=== PATIENT | female | born 1975 | race Caucasian/White ===

== ENCOUNTER 2017-03-02 10:46 | Inpatient (IN) | payer SELFPAY ==
[~2017-03-02] VITALS: Ht 165.1 cm; Wt 90.3 kg
[~2017-03-02 10:46] MED LIST: HYDR-3580 PO; LEVA750T9 PO; SUMA25 PO
[2017-03-02 10:50] VITALS: BP 117/66; PULSE 78; RESP 15; TEMP 97.7; O2SAT 95
--- NOTE | 2017-03-02 11:12 | PD ---
Physical Exam Time Seen by Provider: 11:11 Narrative 41 y/o female reports that she "overdosed" on heroin yesterday- she was cyanotic per onlookers. Today she is having paresthesias in the extremities, generalized weakness, generalized myalgias. Vital signs reviewed. Seen at triage desk. Awaiting bed placement. Data Data Last Documented VS Vital Signs Date Time Temp Pulse Resp B/P Pulse Ox O2 Delivery O2 Flow Rate FiO2 03/02/17 10:50 97.7 78 15 117/66 95 MDM Medical Record Reviewed: Yes Supervised Visit with MAXINE: Timbo Covington Mar 02, 2017 11:12
[2017-03-02 11:55] LABS: AUTOMATED NEUTROPHIL # 8.5 TH/MM3 (1.8-7.7); BASOPHIL % 0.4 % (0.0-2.0); EOSINOPHIL # 0.1 TH/MM3 (0-0.4); EOSINOPHIL % 0.7 % (0.0-4.0); HEMATOCRIT 38.4 % (35.0-46.0); HEMO FLAGS DIFF FINAL; LYMPH % 18.3 % (9.0-44.0); LYMPHOCYTE # 2.1 TH/MM3 (1.0-4.8); MEAN CELL VOLUME 86.5 FL (80.0-100.0); MEAN CORPUSCULAR HEMOGLOBIN 29.2 PG (27.0-34.0); MEAN CORPUSCULAR HGB CONC 33.8 % (32.0-36.0); MONO % 4.6 % (0.0-8.0); PLATELET COUNT 133 TH/MM3 (150-450); RED BLOOD COUNT 4.44 MIL/MM3 (4.00-5.30); RED CELL DISTRIBUTION WIDTH 15.6 % (11.6-17.2); WHITE BLOOD COUNT 11.2 TH/MM3 (4.0-11.0)
[2017-03-02 12:14] LABS: ALT (GPT) 701 U/L (10-53); ANION GAP 10 MEQ/L (5-15); AST (GOT) 722 U/L (15-37); BICARBONATE 23.5 MEQ/L (21.0-32.0); BLOOD UREA NITROGEN 30 MG/DL (7-18); CHLORIDE 103 MEQ/L (98-107); GLOMERULAR FILTRATION RATE 21 ML/MIN (>89); MAGNESIUM 2.4 MG/DL (1.5-2.5); POTASSIUM 3.5 MEQ/L (3.5-5.1); SODIUM (NA) 136 MEQ/L (136-145)
[2017-03-02 12:43] LABS: ALKALINE PHOSPHATASE 115 U/L (45-117); TOTAL BILIRUBIN ADULT 0.5 MG/DL (0.2-1.0)
[2017-03-02 13:16] LABS: CREATINE KINASE 16587 U/L (26-192)
[2017-03-02] MEDS ORDERED: SODIUM CHLOR 0.9% 1000 ML INJ 1,000 ML IV SCH ×3 (13:31→16:00)
[2017-03-02] MEDS ORDERED: SODIUM CHLOR 0.9% 1000 ML INJ 1,000 ML IV ONE ×2 (14:15)
--- NOTE | 2017-03-02 14:15 | PD ---
HPI Chief Complaint: Pain: Acute or Chronic Time Seen by Provider: 14:11 Travel History International Travel<30 days: No Contact w/Intl Traveler<30days: No Traveled to known affect area: No History of Present Illness HPI Patient comes emergency Department complaining of muscle cramping in all 4 extremities, lower extremities greater than upper extremities. Patient reports began after accidentally overdosing on heroin yesterday around 5 AM. Patient states that she did not go to the ER but that her friend stayed with her after injecting heroin she passed out, but continued breathing. Patient reports that a friend stayed with her and help working with her but did not call 911. Patient states when she awoke she began having the cramping pain that is worse with walking. Patient tried resting yesterday with no improvement of her symptoms and decided to come to the emergency Department for further treatment and evaluation. Patient denies any chest pain, shortness of breath, nausea, vomiting, abdominal pain, or headaches. Patient states only her second time doing heroin, but she has done crack intermittently over the last 20 years. PFSH Past Medical History Hx Anticoagulant Therapy: No Arthritis: No Asthma: Yes Autoimmune Disease: No Blood Disorders: No Anxiety: Yes Depression: Yes Heart Rhythm Problems: No Cancer: Yes (POSS CERVICAL POSS HPV, DX'D 4 YRS AGO, breast cancer) Cardiovascular Problems: No High Cholesterol: No Chemotherapy: Yes Chest Pain: No Congestive Heart Failure: No COPD: No Cerebrovascular Accident: No Diabetes: No Diminished Hearing: No GERD: No Glaucoma: No Headaches: No Hepatitis: No Hiatal Hernia: No Hypertension: No Kidney Stones: No Psychiatric: Yes (ALCOHOLIC & PSA DEPENDENCY) Respiratory: No Myocardial Infarction: No Radiation Therapy: No Renal Failure: No Seizures: No Sickle Cell Disease: No Sleep Apnea: No Thyroid Disease: No Ulcer: No ?: Not : 7 Para: 7 Miscarriage: 0 : 0 Ectopic : No Ovarian Cysts: No Tubal Ligation: No Past Surgical History Abdominal Surgery: Yes AICD: No Appendectomy: Yes Cardiac Surgery: No Section: Yes (x 2) Ear Surgery: No Endocrine Surgery: No Eye Surgery: No Genitourinary Surgery: No Gynecologic Surgery: Yes (C-SECT X 1) Hysterectomy: No Neurologic Surgery: No Oral Surgery: No Pacemaker: No Thoracic Surgery: Yes (double mastectomy) Other Surgery: Yes (HERNIA/ port) Social History Alcohol Use: No Tobacco Use: Yes (1 PPD FOR 15 YEARS now 10 per day) 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 (HX OF CRACK) Allergies-Medications (Allergen,Severity, Reaction): Coded Allergies: Morphine (Verified Allergy, Severe, Headache, 03/02/17) Erythromycins (Verified Allergy, Intermediate, RASH,N/V, 03/02/17) Reported Meds & Prescriptions Reported Meds & Active Scripts Active Levaquin (Levofloxacin) 750 Mg Tab 1 Tab PO DAILY 5 Days Hydrocodone/Acetaminophen 7.5 mg/325 mg [id number]/7.5 Hydrocodone Tab 1 Tab PO Q6 Reported Imitrex 25 Mg Tab (Sumatriptan Succinate) 25 Mg Tab 25 Mg PO BID PRN MAY REPEAT X 1 IN 2 HOURS Review of Systems Except as stated in HPI: all other systems reviewed are Neg Physical Exam Narrative GENERAL: Well-developed, overly nourished, in no acute distress, and non-ill appearing. SKIN: Focused skin assessment warm and dry. HEAD: Atraumatic. Normocephalic. EYES: Pupils equal and round. EOMI. No scleral icterus. No injection or drainage. ENT: No nasal bleeding or discharge. Mucous membranes pink and moist. NECK: Trachea midline. Supple. No nuclear rigidity. CARDIOVASCULAR: Regular rate and rhythm. No murmur appreciated. Radial dorsal pulses 2+, intact, and equal bilaterally. RESPIRATORY: No accessory muscle use. No respiratory distress. Clear to auscultation. Breath sounds equal bilaterally. GASTROINTESTINAL: Abdomen soft, non-tender, nondistended, and no guarding. Hepatic and splenic margins not palpable. Normal bowel sounds 4. No pulsatile mass. MUSCULOSKELETAL: No obvious deformities. No clubbing. No cyanosis. No edema. Full range of motion. Patient reports tenderness to palpation throughout bilateral lower extremities. NEUROLOGICAL: Awake and alert. No obvious cranial nerve deficits. Motor grossly within normal limits. Normal speech. PSYCHIATRIC: Appropriate mood and affect; insight and judgment normal. Data Data Last Documented VS Vital Signs Date Time Temp Pulse Resp B/P Pulse Ox O2 Delivery O2 Flow Rate FiO2 03/02/17 10:50 97.7 78 15 117/66 95 Orders Electrocardiogram (03/02/17 11:13) Complete Blood Count With Diff (03/02/17 11:13) Comprehensive Metabolic Panel (03/02/17 11:13) Drug Screen, Random Urine (03/02/17 11:13) Creatine Kinase (Cpk) (03/02/17 11:13) Magnesium (Mg) (03/02/17 11:13) Ed Urine Pregnancytest Poc (03/02/17 11:13) CKMB (03/02/17 11:30) CKMB% (03/02/17 11:30) Sodium Chlor 0.9% 1000 Ml Inj (Ns 1000 M (03/02/17 13:31) Sodium Chlor 0.9% 1000 Ml Inj (Ns 1000 M (03/02/17 13:31) Sodium Chlor 0.9% 1000 Ml Inj (Ns 1000 M (03/02/17 14:15) Sodium Chlor 0.9% 1000 Ml Inj (Ns 1000 M (03/02/17 14:15) Iv Access Insert/Monitor (03/02/17 14:16) Ecg Monitoring (03/02/17 14:16) Oximetry (03/02/17 14:16) Sodium Chloride 0.9% Flush (Ns Flush) (03/02/17 14:30) Sodium Chlor 0.45%... W/Sodium Bicarbona (03/02/17 14:45) Consult Nephrology (03/02/17 ) (Hub Use Only)Inp Phy Cons/Ref (03/02/17 ) Vascular Access Team Consult/P PRN (03/02/17 15:03) Vascular Poc Ultrasound (03/02/17 ) Admit Order (Ed Use Only) (03/02/17 15:19) Labs Laboratory Tests Test 03/02/17 11:30 White Blood Count 11.2 TH/MM3 Red Blood Count 4.44 MIL/MM3 Hemoglobin 13.0 GM/DL Hematocrit 38.4 % Mean Corpuscular Volume 86.5 FL Mean Corpuscular Hemoglobin 29.2 PG Mean Corpuscular Hemoglobin 33.8 % Concent Red Cell Distribution Width 15.6 % Platelet Count 133 TH/MM3 Mean Platelet Volume 8.7 FL Neutrophils (%) (Auto) 76.0 % Lymphocytes (%) (Auto) 18.3 % Monocytes (%) (Auto) 4.6 % Eosinophils (%) (Auto) 0.7 % Basophils (%) (Auto) 0.4 % Neutrophils # (Auto) 8.5 TH/MM3 Lymphocytes # (Auto) 2.1 TH/MM3 Monocytes # (Auto) 0.5 TH/MM3 Eosinophils # (Auto) 0.1 TH/MM3 Basophils # (Auto) 0.0 TH/MM3 CBC Comment DIFF FINAL Differential Comment Sodium Level 136 MEQ/L Potassium Level 3.5 MEQ/L Chloride Level 103 MEQ/L Carbon Dioxide Level 23.5 MEQ/L Anion Gap 10 MEQ/L Blood Urea Nitrogen 30 MG/DL Creatinine 2.57 MG/DL Estimat Glomerular Filtration 21 ML/MIN Rate Random Glucose 100 MG/DL Calcium Level 8.1 MG/DL Magnesium Level 2.4 MG/DL Total Bilirubin 0.5 MG/DL Aspartate Amino Transf 722 U/L (AST/SGOT) Alanine Aminotransferase 701 U/L (ALT/SGPT) Alkaline Phosphatase 115 U/L Total Creatine Kinase 81990 U/L Creatine Kinase MB 188.0 NG/ML Creatine Kinase MB % 1.1 % Total Protein 7.3 GM/DL Albumin 3.7 GM/DL MDM Medical Decision Making Medical Screen Exam Complete: Yes Emergency Medical Condition: Yes Interpretation(s) EKG reviewed by Dr. Theodore shows sinus rhythm ventricular rate of 86. No STEMI. Differential Diagnosis Rhabdo, musculoskeletal pain, electrolyte abnormality, dehydration, other Narrative Course Patient seen and examined. Labs were obtained and reviewed. IV was established. Patient placed on client service supervisor. Patient started on IV fluids and bicarbonate drip after speaking with nephrology. Discussed patient with Dr. Theodore, who saw and evaluated the patient and is in agreement with plan of care and disposition. Discussed patient with hospitalist who is agreeable to admit the patient. Discussed all findings and plan of care with patient is agreeable for admission. All questions were answered. Physician Communication Physician Communication [phone] Sharma, human resources services specialist strong nitric operator, who recommends starting patient half-normal saline 150 sodium bicarbonate at 125 an hour and he will consult on patient. Diagnosis Primary Impression: Rhabdomyolysis Qualified Code: M62.82 - Non-traumatic rhabdomyolysis Additional Impression: Renal insufficiency Admitting Information Admitting Physician Requests: Admit Condition: Stable Karl Singer Mar 02, 2017 14:15
[2017-03-02] MEDS ORDERED: SODIUM CHLORIDE 0.9% FLUSH 10 ML FLUSH IV FLUSH PRN ×2 (14:30→15:30)
[2017-03-02] MEDS ORDERED: SODIUM BICARBONATE 8.4% INJ 150 MEQ in SODIUM CHLOR 0.45% 1000 ML INJ 1,000 ML IV SCH (14:45)
[2017-03-02] MEDS ORDERED: SODIUM BICARBONATE 8.4% INJ 154 MEQ in SODIUM CHLOR 0.9% 1000 ML INJ 846 ML IV SCH (15:27)
[2017-03-02] MEDS ORDERED: NALOXONE HCL 0.4 MG/ML AMP IV PRN (15:30)
[2017-03-02] MEDS ORDERED: MAGNESIUM HYDROXIDE SUSP 30 ML CUP PO PRN (15:30)
[2017-03-02] MEDS ORDERED: BISACODYL 10 MG SUPP RECTAL PRN (15:30)
[2017-03-02] MEDS ORDERED: SENNOSIDES 8.6 MG TAB PO PRN (15:30)
[2017-03-02] MEDS ORDERED: LACTULOSE SYRUP 20 GM/30 ML CUP PO PRN (15:30)
[2017-03-02] MEDS ORDERED: ONDANSETRON HCL 4 MG/2 ML VIAL IVP PRN (15:30)
[2017-03-02 15:45] VITALS: BP 121/72; PULSE 76; RESP 19; O2SAT 97
[2017-03-02] MEDS ORDERED: LORazepam 2 MG TAB PO PRN (16:00)
[2017-03-02] MEDS ORDERED: LORazepam 2 MG/ML VIAL IV PUSH PRN ×4 (16:00)
[2017-03-02] MEDS ORDERED: FOLIC ACID 1 MG TAB PO ONE (16:00)
[2017-03-02] MEDS ORDERED: FLUMAZENIL 0.5 MG/5 ML VIAL IV PUSH PRN (16:00)
[2017-03-02] MEDS ORDERED: THIAMINE HCL 100 MG TAB PO ONE (16:00)
[2017-03-02] MEDS ORDERED: LORazepam 1 MG TAB PO PRN (16:00)
[2017-03-02] MEDS ORDERED: RESP: ALBUTEROL 2.5 MG/3 ML NEB (PRN) NEB (16:30)
--- NOTE | 2017-03-02 16:41 | HHI.HP ---
HPI Service [facility] Hospitalists Primary Care Physician No Primary Care Physician Admission Diagnosis rhabdomyolysis, renal insufficiency Diagnoses: Chief Complaint: IV Heroin use Muscle cramping Travel History International Travel<30 Days: No Contact w/Intl Traveler <30 Da: No Traveled to Known Affected Are: No History of Present Illness This is a 41-year-old female with past medical history significant for breast cancer status post double mastectomy with left axillary quin involvement lost to follow-up one year ago, asthma and IV drug use who presents to [facility] ED with complaints of severe muscle cramping and numbness and tingling in her hands and lower legs after she "overdosed" on heroin yesterday morning around 5am. Reportedly, patient was cyanotic yesterday with shallow breathing. She complains of shortness of breath. She denies any chest pain or palpitations. She reports nausea and vomiting yesterday but none today. She denies any abdominal pain, diarrhea or constipation. Her last BM was yesterday and was normal per her report. She complains of generalized weakness. Her cramping is worse with ambulation. She denies any complaints of headache or dizziness. She denies any fever or chills. Patient reports this is only the second time she's ever used heroin. She admits to using crack intermittently for the past 20 years. She also endorses daily alcohol consumption of up to a gallon a day. Her last alcoholic drink was yesterday. In the ED, patient was found to be in acute renal failure with a creatinine of 2.57 [place] [address]. LFTs are elevated with AST of 722 and ALT of 701. Review of Systems Except as stated in HPI: all other systems reviewed are Neg Past Family Social History Past Medical History Breast cancer s/p bilateral mastectomy s/p chemotherapy with left axillary quin involvement to undergo radiation therapy but lost to follow-up for the past year Asthma IV drug use Past Surgical History Bilateral mastectomy 2 Hernia sx Appendectomy Reported Medications Imitrex 25 Mg Tab (Sumatriptan Succinate) 25 Mg Tab 25 Mg PO BID PRN Ventolin inhaler Allergies: Coded Allergies: Morphine (Verified Allergy, Severe, Headache, 03/02/17) Erythromycins (Verified Allergy, Intermediate, RASH,N/V, 03/02/17) Active Ordered Medications Current Medications Medications (Trade) Dose Ordered Sig/Sebastián Route Start Time Stop Time Status Last Admin (NS 1000 ml Inj) 1,000 ml @ 125 mls/hr Q8H IV 03/02/17 16:00 (NS Flush) 2 ml UNSCH PRN IV FLUSH 03/02/17 15:30 (NS Flush) 2 ml BID IV FLUSH 03/02/17 21:00 (Zofran Inj) 4 mg Q6H PRN IVP 03/02/17 15:30 (Narcan Inj) 0.4 mg UNSCH PRN IV 03/02/17 15:30 (Yenifer-Colace) 1 tab BID PO 03/02/17 21:00 (Milk Of Magnesia Liq) 30 ml Q12H PRN PO 03/02/17 15:30 (Senokot) 17.2 mg Q12H PRN PO 03/02/17 15:30 (Dulcolax Supp) 10 mg DAILY PRN RECTAL 03/02/17 15:30 Lactulose 30 ml 30 ml DAILY PRN PO 03/02/17 15:30 Sodium Bicarbonate 154 meq/Sodium Chloride 1,000 ml @ 0 mls/hr Q0M IV 03/02/17 15:27 (Sodium Bicarbonate 8.4% Inj/1/2 NS 1000 ml Inj) 1,100 ml @ 125 mls/hr Q8H48M IV 03/02/17 16:00 UNV (Romazicon Inj) 0.2 mg Q1M PRN IV PUSH 03/02/17 16:00 (Ativan) 1 mg Q4H PRN PO 03/02/17 16:00 (Ativan Inj) 1 mg Q4H PRN IV PUSH 03/02/17 16:00 (Ativan) 2 mg Q2H PRN PO 03/02/17 16:00 (Ativan Inj) 2 mg Q2H PRN IV PUSH 03/02/17 16:00 (Ativan Inj) 2 mg Q1H PRN IV PUSH 03/02/17 16:00 (Ativan Inj) 2 mg Q15M PRN IV PUSH 03/02/17 16:00 (Vitamin B1) 100 mg DAILY PO 03/03/17 09:00 (Folate) 1 mg DAILY PO 03/03/17 09:00 Family History Mother, hypertension Social History Patient admits to tobacco use of a pack per day starting at the age of 14. Patient states she has used crack intermittently for the past 20 years. Patient admits to using IV heroin yesterday which is the second time in her life she has used heroin. Physical Exam Vital Signs Vital Signs Date Time Temp Pulse Resp B/P Pulse Ox O2 Delivery O2 Flow Rate FiO2 03/02/17 10:50 97.7 78 15 117/66 95 Physical Exam GENERAL: This is a well-nourished, well-developed patient, in no apparent distress. Appears mildly agitated. SKIN: No rashes, ecchymoses or lesions. Cool and dry. HEAD: Atraumatic. Normocephalic. No temporal or scalp tenderness. EYES: Pupils equal round and reactive. Extraocular motions intact. No scleral icterus. No injection or drainage. ENT: Nose without bleeding or purulent drainage. Throat without erythema, tonsillar hypertrophy or exudate. Uvula midline. Airway patent. NECK: Trachea midline. No lymphadenopathy. Supple, nontender, no meningeal signs. CARDIOVASCULAR: Tachycardic without murmurs, gallops, or rubs. RESPIRATORY: Tight with little air movement. (+) Diffuse wheezing noted. GASTROINTESTINAL: Abdomen soft, non-tender, nondistended. No hepato-splenomegaly , or palpable masses. No guarding. MUSCULOSKELETAL: Extremities without clubbing, cyanosis, or edema. Diffuse tenderness elicited with palpation of the bilateral lower legs. No calf tenderness. NEUROLOGICAL: Awake and alert. Able to move all extremities. Motor and sensory grossly intact. Normal speech. Laboratory Laboratory Tests Test 03/02/17 11:30 White Blood Count 11.2 Red Blood Count 4.44 Hemoglobin 13.0 Hematocrit 38.4 Mean Corpuscular Volume 86.5 Mean Corpuscular Hemoglobin 29.2 Mean Corpuscular Hemoglobin 33.8 Concent Red Cell Distribution Width 15.6 Platelet Count 133 Mean Platelet Volume 8.7 Neutrophils (%) (Auto) 76.0 Lymphocytes (%) (Auto) 18.3 Monocytes (%) (Auto) 4.6 Eosinophils (%) (Auto) 0.7 Basophils (%) (Auto) 0.4 Neutrophils # (Auto) 8.5 Lymphocytes # (Auto) 2.1 Monocytes # (Auto) 0.5 Eosinophils # (Auto) 0.1 Basophils # (Auto) 0.0 CBC Comment DIFF FINAL Differential Comment Sodium Level 136 Potassium Level 3.5 Chloride Level 103 Carbon Dioxide Level 23.5 Anion Gap 10 Blood Urea Nitrogen 30 Creatinine 2.57 Estimat Glomerular Filtration 21 Rate Random Glucose 100 Calcium Level 8.1 Magnesium Level 2.4 Total Bilirubin 0.5 Aspartate Amino Transf 722 (AST/SGOT) Alanine Aminotransferase 701 (ALT/SGPT) Alkaline Phosphatase 115 Total Creatine Kinase 49646 Creatine Kinase MB 188.0 Creatine Kinase MB % 1.1 Total Protein 7.3 Albumin 3.7 Result Diagram: 03/02/17 1130 03/02/17 1130 Assessment and Plan Assessment and Plan 41-year-old female with past medical history significant for breast cancer status post double mastectomy with left axillary quin involvement lost to follow-up one year ago, asthma and IV drug use who presents to [facility] ED with complaints of severe muscle cramping and numbness and tingling in her hands and lower legs after she "overdosed" on heroin yesterday morning around 5am. Rhabdomyolysis following IV Heroin use/[place] [address] Aggressive fluid hydration Repeat in am Acute renal failure secondary to above Nephrology consulted by ED physician. Per their conversation, begin 125 cc/h of 1/2 NS with bicarb. Avoid nephrotoxic agents strict I&Os Repeat BMP in am Polysubstance abuse Alcoholism Heroin IV drug use Obtain UDS CIWA protocol Thiamine and folic acid daily Monitor for signs of withdrawal Discuss cessation/counseling Asthma Patient complains of SOB Obtain chest x-ray Begin DuoNeb every 6 hours while awake Albuterol every 2 when necessary Transaminitis Likely secondary to alcohol use Ethyl alcohol level ordered Obtain liver US Hepatitis profile Repeat LFTs in am to trend Bilateral lower leg pain Likely due to rhabdomyolysis Obtain bilateral Doppler studies to rule out DVT Ongoing tobaccoism Discussed smoking cessation/counseling Nicotine patch with H/O Breast cancer with left axillary node involvement to receive XRT but patient lost to follow-up one year ago Patient will need a follow-up with oncologist as outpatient DVT prophylaxis Bilateral SCD/SARAI hose Discussed Condition With Discussed with patient, Dr. Garcia and nursing staff Physician Certification 2 Midnight Certification Type: Admission for Inpatient Services Order for Inpatient Services The services are ordered in accordance with Medicare regulations or non- Medicare payer requirements, as applicable. In the case of services not specified as inpatient-only, they are appropriately provided as inpatient services in accordance with the 2-midnight benchmark. Estimated LOS (days): 3 3 days is the estimated time the patient will need to remain in the hospital, assuming treatment plan goals are met and no additional complications. Post-Hospital Plan: Not yet determined Collaborating MD Comments Patient complaining of muscle ache after overdosing heroin. She states she also had fevers and chills. She stated that she has good urine output she has no other complaints. Patient stated that she was sleepy during the interview. All other review symptoms reviewed are negative. GENERAL: in NAD sleeping in bed but easily awaken for interview. SKIN: Warm and dry. HEAD: Normocephalic. EYES: No scleral icterus. No injection or drainage. NECK: Supple, trachea midline. No JVD or lymphadenopathy. CARDIOVASCULAR: Regular rate and rhythm without murmurs, gallops, or rubs. RESPIRATORY: Breath sounds equal bilaterally. No accessory muscle use. GASTROINTESTINAL: Abdomen soft, non-tender, nondistended. MUSCULOSKELETAL: No cyanosis, or edema. BACK: Nontender without obvious deformity. No CVA tenderness. Assessment/pain Heroin overdose Acute renal failure secondary rhabdomyolysis Rhabdomyolysis Will aggressively hydrate patient due to rhabdo and acute renal failure. [employer] already consulted in the ED. Recommend 125 cc/h of 1/2 NS with bicarb. will give NS boluses. Avoid nephrotoxins. Strict ins and outs. Continue monitor creatinine and labs. Will give supportive care. Will also get urine drug screen and ethanol level since this was not done yet. Attestation The exam, history, and the medical decision-making described in the above note were completed with the assistance of the mid-level provider. I reviewed and agree with the findings presented. I attest that I had a [id number] encounter with the patient on the same day, and personally performed and documented my assessment and findings in the medical record. Kasie Allen Mar 02, 2017 16:41 Ashia Garcia MD Mar 02, 2017 17:14
--- NOTE | 2017-03-02 16:51 | RADRPT ---
EXAM DATE/TIME: 03/02/2017 16:34 [facility] COMPARISON: No previous studies available for comparison. INDICATIONS : Syncope. Possible overdose. MEDICAL HISTORY : Carcinoma, breast. Asthma. SURGICAL HISTORY : Mastectomy, bilateral. Infusaport. ENCOUNTER: Initial ACUITY: 1 day PAIN SCORE: 0/10 LOCATION: Bilateral chest FINDINGS: PA and lateral views of the chest demonstrate heart size within normal limits. [id number] in right atrium. Minimal basilar airspace disease. No significant effusion. No pneumothorax. CONCLUSION: 1. Mild basal and dependent airspace disease most characteristic of atelectasis. No significant effus ion. No pneumothorax. Antonio Aguilar MD on March 02, 2017 at 16:48 Board Certified Radiologist. This report was verified electronically.
[2017-03-02 17:00] VITALS: O2SAT 97
--- NOTE | 2017-03-02 17:27 | PD ---
HPI Chief Complaint: Pain: Acute or Chronic Time Seen by Provider: 14:11 Travel History International Travel<30 days: No Contact w/Intl Traveler<30days: No Traveled to known affect area: No History of Present Illness HPI This is a 41-year-old female who presents to the emergency department having had an overdose on heroin yesterday. Her friends sat there and watched her and ultimately she woke up. Over the night she's developed increasing extremity cramping and soreness, constant, moderate severity so she came to the emergency department. PFSH Past Medical History Hx Anticoagulant Therapy: No Arthritis: No Asthma: Yes Autoimmune Disease: No Blood Disorders: No Anxiety: Yes Depression: Yes Heart Rhythm Problems: No Cancer: Yes (POSS CERVICAL POSS HPV, DX'D 4 YRS AGO, breast cancer) Cardiovascular Problems: No High Cholesterol: No Chemotherapy: Yes Chest Pain: No Congestive Heart Failure: No COPD: No Cerebrovascular Accident: No Diabetes: No Diminished Hearing: No GERD: No Glaucoma: No Headaches: No Hepatitis: No Hiatal Hernia: No Hypertension: No Kidney Stones: No Psychiatric: Yes (ALCOHOLIC & PSA DEPENDENCY) Respiratory: No Myocardial Infarction: No Radiation Therapy: No Renal Failure: No Seizures: No Sickle Cell Disease: No Sleep Apnea: No Thyroid Disease: No Ulcer: No ?: Not : 7 Para: 7 Miscarriage: 0 : 0 Ectopic : No Ovarian Cysts: No Tubal Ligation: No Past Surgical History Abdominal Surgery: Yes AICD: No Appendectomy: Yes Cardiac Surgery: No Section: Yes (x 2) Ear Surgery: No Endocrine Surgery: No Eye Surgery: No Genitourinary Surgery: No Gynecologic Surgery: Yes (C-SECT X 1) Hysterectomy: No Neurologic Surgery: No Oral Surgery: No Pacemaker: No Thoracic Surgery: Yes (double mastectomy) Other Surgery: Yes (HERNIA/ port) Social History Alcohol Use: No Tobacco Use: Yes (1 PPD FOR 15 YEARS now 10 per day) 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 (HX OF CRACK) Allergies-Medications (Allergen,Severity, Reaction): Coded Allergies: Morphine (Verified Allergy, Severe, Headache, 03/02/17) Erythromycins (Verified Allergy, Intermediate, RASH,N/V, 03/02/17) Reported Meds & Prescriptions Reported Meds & Active Scripts Active Levaquin (Levofloxacin) 750 Mg Tab 1 Tab PO DAILY 5 Days Hydrocodone/Acetaminophen 7.5 mg/325 mg [id number]/7.5 Hydrocodone Tab 1 Tab PO Q6 Reported Imitrex 25 Mg Tab (Sumatriptan Succinate) 25 Mg Tab 25 Mg PO BID PRN MAY REPEAT X 1 IN 2 HOURS Review of Systems Except as stated in HPI: all other systems reviewed are Neg Physical Exam Narrative GENERAL:Well appearing, no acute distress SKIN: Focused skin assessment warm and dry. HEAD: Atraumatic. Normocephalic. EYES: Pupils equal and round. No injection or drainage. ENT: Moist mucous membranes NECK: Trachea midline. CARDIOVASCULAR: Regular rate and rhythm. No murmur appreciated. RESPIRATORY: Clear to auscultation. Breath sounds equal bilaterally. GASTROINTESTINAL: Abdomen soft, non-tender, nondistended. MUSCULOSKELETAL: No obvious deformities. NEUROLOGICAL: Awake and alert. No obvious cranial nerve deficits. Moving all extremities. PSYCHIATRIC: Appropriate mood and affect; insight and judgment normal. Data Data Last Documented VS Vital Signs Date Time Temp Pulse Resp B/P Pulse Ox O2 Delivery O2 Flow Rate FiO2 03/02/17 10:50 97.7 78 15 117/66 95 Orders Electrocardiogram (03/02/17 11:13) Complete Blood Count With Diff (03/02/17 11:13) Comprehensive Metabolic Panel (03/02/17 11:13) Drug Screen, Random Urine (03/02/17 11:13) Creatine Kinase (Cpk) (03/02/17 11:13) Magnesium (Mg) (03/02/17 11:13) Ed Urine Pregnancytest Poc (03/02/17 11:13) CKMB (03/02/17 11:30) CKMB% (03/02/17 11:30) Sodium Chlor 0.9% 1000 Ml Inj (Ns 1000 M (03/02/17 13:31) Sodium Chlor 0.9% 1000 Ml Inj (Ns 1000 M (03/02/17 13:31) Sodium Chlor 0.9% 1000 Ml Inj (Ns 1000 M (03/02/17 14:15) Sodium Chlor 0.9% 1000 Ml Inj (Ns 1000 M (03/02/17 14:15) Iv Access Insert/Monitor (03/02/17 14:16) Ecg Monitoring (03/02/17 14:16) Oximetry (03/02/17 14:16) Sodium Chloride 0.9% Flush (Ns Flush) (03/02/17 14:30) Sodium Chlor 0.45%... W/Sodium Bicarbona (03/02/17 14:45) Consult Nephrology (03/02/17 ) (Hub Use Only)Inp Phy Cons/Ref (03/02/17 ) Vascular Access Team Consult/P PRN (03/02/17 15:03) Vascular Poc Ultrasound (03/02/17 ) Admit Order (Ed Use Only) (03/02/17 15:19) Labs Laboratory Tests Test 03/02/17 11:30 White Blood Count 11.2 TH/MM3 Red Blood Count 4.44 MIL/MM3 Hemoglobin 13.0 GM/DL Hematocrit 38.4 % Mean Corpuscular Volume 86.5 FL Mean Corpuscular Hemoglobin 29.2 PG Mean Corpuscular Hemoglobin 33.8 % Concent Red Cell Distribution Width 15.6 % Platelet Count 133 TH/MM3 Mean Platelet Volume 8.7 FL Neutrophils (%) (Auto) 76.0 % Lymphocytes (%) (Auto) 18.3 % Monocytes (%) (Auto) 4.6 % Eosinophils (%) (Auto) 0.7 % Basophils (%) (Auto) 0.4 % Neutrophils # (Auto) 8.5 TH/MM3 Lymphocytes # (Auto) 2.1 TH/MM3 Monocytes # (Auto) 0.5 TH/MM3 Eosinophils # (Auto) 0.1 TH/MM3 Basophils # (Auto) 0.0 TH/MM3 CBC Comment DIFF FINAL Differential Comment Sodium Level 136 MEQ/L Potassium Level 3.5 MEQ/L Chloride Level 103 MEQ/L Carbon Dioxide Level 23.5 MEQ/L Anion Gap 10 MEQ/L Blood Urea Nitrogen 30 MG/DL Creatinine 2.57 MG/DL Estimat Glomerular Filtration 21 ML/MIN Rate Random Glucose 100 MG/DL Calcium Level 8.1 MG/DL Magnesium Level 2.4 MG/DL Total Bilirubin 0.5 MG/DL Aspartate Amino Transf 722 U/L (AST/SGOT) Alanine Aminotransferase 701 U/L (ALT/SGPT) Alkaline Phosphatase 115 U/L Total Creatine Kinase 13260 U/L Creatine Kinase MB 188.0 NG/ML Creatine Kinase MB % 1.1 % Total Protein 7.3 GM/DL Albumin 3.7 GM/DL MDM Medical Decision Making Medical Screen Exam Complete: Yes Emergency Medical Condition: Yes Interpretation(s) Afebrile, no tachycardia, normotensive Mild leukocytosis Renal failure Transaminitis CK of 16,000 Differential Diagnosis Rhabdomyolysis, dehydration, acute kidney injury, shock liver Narrative Course This is a 41-year-old female who presents to the emergency department having had a heroin overdose yesterday for which she didn't come in to the hospital. She comes in now because she's having muscle cramping. She was placed on a monitor and an IV was established. She is found have a CK of 16,000 as well as acute kidney injury. She was given 4 L total of IV fluid in the emergency department over several hours. He spoke to Dr. Villalobos who was on-call for nephrology and he agreed with treatment with sodium bicarbonate which was initiated in the ER. Patient will be admitted for continued management. Critical Care Narrative Aggregate critical care time was 35 minutes. Time to perform other separately billable procedures was not included in the critical care time. My time did not include minutes spent treating any other patients simultaneously or on activities that did not directly contribute to the patient's treatment. The services I provided to this patient were to treat and/or prevent clinically significant deterioration that could result in: disability, I provided critical care services requiring my management, as noted below: Chart data review, documentation time, medication orders and management, vital sign assessments/reviewing monitor data, ordering and reviewing lab tests, ordering and interpreting/reviewing x-rays and diagnostic studies, care of the patient and discussion of the patient with the admitting physicians. Diagnosis Primary Impression: Rhabdomyolysis Qualified Code: M62.82 - Non-traumatic rhabdomyolysis Additional Impression: Renal insufficiency Admitting Information Admitting Physician Requests: Admit Condition: Stable Mercedes Theodore MD Mar 02, 2017 17:27
--- NOTE | 2017-03-02 17:55 | RADRPT ---
EXAM DATE/TIME: 03/02/2017 17:16 [facility] COMPARISON: No previous studies available for comparison. INDICATIONS : MEDICAL HISTORY : Asthma. Dyspnea. Left breast cancer. Fibromyalgia. Depression. Anxiety. Chemotherapy. SURGICAL HISTORY : Appendectomy. section. Double mastectomy. Breast biopsy. Hernia repair. Port placement. ENCOUNTER: Initial ACUITY: 2 day PAIN SCORE: 7/10 LOCATION: Bilateral legs. TECHNIQUE: Venous ultrasound of the left and right leg was performed from the inguinal ligament to the proximal calf. Real-time, color Doppler and spectral tracing, compression and augmentation techniques were us ed. FINDINGS: RIGHT LEG: There is normal compressibility of the deep venous system from the inguinal region to the proximal ca lf. No echogenic clot is seen in the lumen of the common femoral, femoral, popliteal, and posterior tibial veins. There is a normal response of the venous system to proximal and distal augmentation an d respiration. LEFT LEG: Absent color flow and noncompressibility of the left posterior tibial vein indicates thrombosis. The more proximal venous structures are intact and patent. Specifically, the popliteal, superficial femor al, common femoral and visualized iliac vein are patent. CONCLUSION: Calf DVT present in the left posterior tibial vein. Felipe Toro MD on March 02, 2017 at 17:52 Board Certified Radiologist. This report was verified electronically.
--- NOTE | 2017-03-02 17:58 | RADRPT ---
EXAM DATE/TIME: 03/02/2017 17:03 [facility] COMPARISON: No previous studies available for comparison. INDICATIONS : Increased lab values. MEDICAL HISTORY : Asthma. Dyspnea. Left breast cancer. Fibromyalgia. Depression. Anxiety. Chemotherapy. SURGICAL HISTORY : Appendectomy. section. Double mastectomy. Breast biopsy. Hernia repair. Port placement. ENCOUNTER: Initial ACUITY: 1 day PAIN SCORE: 7/10 LOCATION: Bilateral upper quadrant MEASUREMENTS: LIVER: 15.4 cm length COMMON DUCT: 3 mm RIGHT KIDNEY: 9.8 x 5.1 x 5.8 cm SPLEEN: 13.2 cm length FINDINGS: LIVER: Normal echotexture without focal lesion or ductal dilatation. COMMON DUCT: No intraluminal mass or stone visualized. GALLBLADDER: Contains no stones, demonstrates no wall thickening or pericholecystic fluid. PANCREAS: The visualized portions are within normal limits. RIGHT KIDNEY: No hydronephrosis, stone or mass. SPLEEN: No focal lesion. Mildly enlarged. CONCLUSION: 1. No acute findings. Mild splenomegaly to 13 cm. Antonio Aguilar MD on March 02, 2017 at 17:56 Board Certified Radiologist. This report was verified electronically.
[2017-03-02] MEDS: RESP: ALBUTEROL 2.5 MG/IPRATROPIUM 0.5 MG NEB (SCH) NEB (19:57)
[2017-03-02 20:30] VITALS: BP 107/57; PULSE 93; RESP 17; TEMP 99.2; O2SAT 94
[2017-03-02] MEDS: SODIUM CHLORIDE 0.9% FLUSH 10 ML FLUSH IV FLUSH SCH (21:00)
[2017-03-02] MEDS: HEPARIN-D5W INJ 250 ML IV SCH (21:19)
[2017-03-02 22:00] VITALS: PULSE 104
--- NOTE | 2017-03-02 22:23 | MB ---
cc: RAINER LEE MD DATE OF CONSULTATION 03/02/17 REASON FOR CONSULTATION Acute kidney injury and rhabdomyolysis for management. HISTORY OF PRESENT ILLNESS This is a 41-year-old female with past medical history of breast cancer with bilateral mastectomy and chemotherapy, bronchial asthma, history of IV drug abuse, came to the hospital with complaint of muscle pain. I was called to see the patient because of very high BUN and creatinine and very high CPK level. The patient admits that she has been using heroin and she is saying that she is using it orally and she overdosed yesterday morning and she was probably lying on the floor for some time. She does not know exactly for how long. She woke up and she has severe pain in the muscle and she came to the emergency department. She denies any nausea or vomiting. There is no history of diarrhea. Denies taking any nonsteroidal anti-inflammatory drugs. She did notice that she is passing less urine. PAST MEDICAL HISTORY History of breast cancer, IV drug abuse, bronchial asthma. PAST SURGICAL HISTORY Bilateral mastectomy, section. Appendicectomy, hernia surgery. REVIEW OF SYSTEMS The patient has generalized weakness, feeling tired and decreased appetite, not eating well, feeling tired, has generalized body pain. No shortness of breath. No chest pain. No palpitation. No nausea, vomiting. No abdominal pain. No history of diarrhea. She did notice that she has decreased urine output. Not taking any nonsteroidal anti-inflammatory drugs. SOCIAL HISTORY Patient is a chronic smoker. Smokes about one pack per day. She has been using cocaine and heroin IV, she used yesterday and also ___ chewing some. FAMILY HISTORY Noncontributory. ALLERGIES SHE IS ALLERGIC TO ERYTHROMYCIN AND MORPHINE. MEDICATIONS Currently she is now is on: 1. IV fluid bolus and she is supposed to get sodium bicarbonate IV fluid. 2. Thiamine 100 milligrams once a day. 3. Yenifer-Colace 1 tablet b.i.d. 4. Folic acid 1 milligram once a day. 5. Nicotine patch. 6. Heparin IV as per protocol. 7. DuoNeb nebulizer. 8. Marcaine. 9. Zofran. 10. Ativan as needed. PHYSICAL EXAMINATION GENERAL: The patient is awake, alert. She is not in acute distress. VITAL SIGNS: Last blood pressure 121/72, temperature 97.7, oxygen saturation 95-97% on room air. HEENT: Pupils are mid constricted. Nonicteric sclera. Conjunctivae normal. NECK: Supple. JVD is not elevated. LUNGS: The patient has bilateral good air entry with occasional wheezing. HEART: S1-S2, regular rhythm. ABDOMEN: Soft lax. There is no tenderness. Bowel sounds positive. EXTREMITIES: There is no pedal edema. INVESTIGATION WBC count is 11.2, hemoglobin 13.0, platelet count 133, neutrophils 76%, sodium 136, potassium 3.5, chloride 103, bicarb 23.5, BUN 30, creatinine 2.57, calcium 8.1, magnesium 2.4, AST 722, ALT 701, creatinine kinase 16,587, total protein 7.3 with albumin of 3.7. INR is not done. Urinalysis also not done. Toxicology screen is also not done. IMAGING STUDIES The patient has ultrasound of the lower leg done which shows DVT in the left posterior tibial vein. Ultrasound of the liver was done which shows no acute findings. Right kidney shows no hydronephrosis. Chest x-ray was done which shows basilar and dependent airspace disease. ASSESSMENT/PLAN 1. Acute kidney injury. 2. Rhabdomyolysis. 3. Deep vein thrombosis. 4. Elevated liver enzymes. 5. History of heroin overdose. The patient has acute kidney injury and has high BUN and creatinine. Previously, the patient has normal creatinine in 2014, most likely this is related to rhabdomyolysis and acute renal failure. Agree with continuing IV fluid with sodium bicarbonate and follow the urine output and the BUN and creatinine and the CPK level. The patient is started on heparin for deep vein thrombosis. Follow the liver enzymes. Thank you for the consultation. I will follow the patient while she is in the hospital. MD JEAN CLAUDE Gomes/LISET /6:31 PM /10:02 PM
[2017-03-02 22:56] LABS: HEMATOCRIT 35.5 % (35.0-46.0); MEAN CORPUSCULAR HEMOGLOBIN 29.2 PG (27.0-34.0); MEAN CORPUSCULAR HGB CONC 33.6 % (32.0-36.0); PLATELET COUNT 124 TH/MM3 (150-450); RED BLOOD COUNT 4.09 MIL/MM3 (4.00-5.30); RED CELL DISTRIBUTION WIDTH 15.9 % (11.6-17.2); REVIEW FLAG FINAL; WHITE BLOOD COUNT 8.7 TH/MM3 (4.0-11.0)
[2017-03-02 23:10] LABS: APTT (PATIENT) 34.2 SEC (24.3-30.1); PROTHROMBIN TIME - PATIENT 11.4 SEC (9.8-11.6)
[2017-03-03] VITALS (9 sets, daily range): BP systolic 103–120; BP diastolic 55–67; PULSE 90–98; RESP 16–20; TEMP 97.7–99.6; O2SAT 90–97
[2017-03-03 04:21] LABS: BASOPHIL % 0.6 % (0.0-2.0); EOSINOPHIL # 0.2 TH/MM3 (0-0.4); EOSINOPHIL % 2.3 % (0.0-4.0); HEMATOCRIT 34.1 % (35.0-46.0); HEMO FLAGS DIFF FINAL; LYMPH % 32.7 % (9.0-44.0); LYMPHOCYTE # 2.8 TH/MM3 (1.0-4.8); MEAN CELL VOLUME 85.7 FL (80.0-100.0); MEAN CORPUSCULAR HEMOGLOBIN 29.5 PG (27.0-34.0); MEAN CORPUSCULAR HGB CONC 34.4 % (32.0-36.0); MONO % 4.7 % (0.0-8.0); NEUT % 59.7 % (16.0-70.0); PLATELET COUNT 117 TH/MM3 (150-450); RED BLOOD COUNT 3.98 MIL/MM3 (4.00-5.30); RED CELL DISTRIBUTION WIDTH 16.1 % (11.6-17.2); WHITE BLOOD COUNT 8.4 TH/MM3 (4.0-11.0)
[2017-03-03 04:31] LABS: APTT (PATIENT) 43.4 SEC (24.3-30.1)
[2017-03-03 05:04] LABS: ALKALINE PHOSPHATASE 89 U/L (45-117); ALT (GPT) 479 U/L (10-53); ANION GAP 7 MEQ/L (5-15); AST (GOT) 314 U/L (15-37); BICARBONATE 25.1 MEQ/L (21.0-32.0); BLOOD UREA NITROGEN 17 MG/DL (7-18); CHLORIDE 111 MEQ/L (98-107); CREATINE KINASE 6874 U/L (26-192); GLOMERULAR FILTRATION RATE 49 ML/MIN (>89); POTASSIUM 3.6 MEQ/L (3.5-5.1); SODIUM (NA) 143 MEQ/L (136-145); TOTAL BILIRUBIN ADULT 0.3 MG/DL (0.2-1.0)
[2017-03-03 05:29] LABS: CKMB 53.2 NG/ML (0.5-3.6)
[2017-03-03] MEDS: RESP: ALBUTEROL 2.5 MG/IPRATROPIUM 0.5 MG NEB (SCH) NEB ×2 (08:29→20:31)
[2017-03-03] MEDS: DOCUSATE SODIUM 50 MG/SENNA 8.6 MG TAB PO SCH ×2 (08:39→21:01)
--- NOTE | 2017-03-03 08:39 | EKG ---
Date Performed: 03/02/2017 Time Performed: 11:25:58 PTAGE: 41 years EKG: Sinus rhythm NORMAL ECG PREVIOUS TRACING : 03/30/2015 22.48 DOCTOR: Marco Antonio Dunbar Interpretating Date/Time 03/03/2017 08:33:11
[2017-03-03] MEDS: NICOTINE 14 MG/24 HR PATCH T-DERMAL SCH (08:40)
[2017-03-03] MEDS: FOLIC ACID 1 MG TAB PO SCH (08:40)
[2017-03-03] MEDS: REMOVE OLD PATCH T-DERMAL SCH (08:40)
[2017-03-03] MEDS: THIAMINE HCL 100 MG TAB PO SCH (08:40)
[2017-03-03] MEDS: SODIUM CHLORIDE 0.9% FLUSH 10 ML FLUSH IV FLUSH SCH ×2 (08:41→21:00)
[2017-03-03] MEDS: SODIUM BICARBONATE 8.4% INJ 100 MEQ in SODIUM CHLOR 0.45% 1000 ML INJ 1,000 ML IV SCH ×2 (10:31→18:39)
[2017-03-03] MEDS: HEPARIN-D5W INJ 250 ML IV SCH (10:51)
--- NOTE | 2017-03-03 11:25 | HHI.PR ---
Subjective Remarks Follow-up for rhabdomyolysis, acute renal failure, and heroin overdose Patient states she feels a lot better today. She has no complaints. Patient stated that she is in remission from breast cancer, but could not tell me when she last saw her oncologist in regards to this. I asked patient how long she thinks she was unconscious patient stated that she does not know but it could've been for days. Bicarbonate fluids was not started yesterday but that night nurse. UA was not also obtained. Dealt with patient's nurse Rina. Objective Vitals Vital Signs Date Time Temp Pulse Resp B/P Pulse Ox O2 Delivery O2 Flow Rate FiO2 03/03/17 08:39 97.7 98 16 112/67 94 03/03/17 05:50 90 03/03/17 05:00 99.1 95 17 114/66 93 03/03/17 00:30 99.6 98 17 103/55 94 03/02/17 22:00 104 03/02/17 20:30 99.2 93 17 107/57 94 03/02/17 17:00 97 Room Air 03/02/17 15:45 76 19 121/72 97 Room Air I/O 03/02/17 03/02/17 03/02/17 03/03/17 03/03/17 03/03/17 07:00 15:00 23:00 07:00 15:00 23:00 Intake Total 480 ml Output Total 950 ml Balance -470 ml Intake Oral 480 ml Output Urine Total 950 ml # Voids 2 5 Result Diagram: 03/03/17 0400 03/03/17 0400 Imaging Last Impressions Lower Extremity Ultrasound 03/02/17 0000 Signed Impressions: Service Date/Time: Thursday, March 02, 2017 17:16 - CONCLUSION: Calf DVT present in the left posterior tibial vein. Felipe Toro MD Liver Ultrasound 03/02/17 0000 Signed Impressions: Service Date/Time: Thursday, March 02, 2017 17:03 - CONCLUSION: 1. No acute findings. Mild splenomegaly to 13 cm. Antonio Aguilar MD Chest X-Ray 03/02/17 0000 Signed Impressions: Service Date/Time: Thursday, March 02, 2017 16:34 - CONCLUSION: 1. Mild basal and dependent airspace disease most characteristic of atelectasis. No significant effusion. No pneumothorax. Antonio Aguilar MD Objective Remarks GENERAL: in NAD SKIN: Port dry clean and intact HEAD: Normocephalic. EYES: No scleral icterus. No injection or drainage. NECK: Supple, trachea midline. No JVD or lymphadenopathy. CARDIOVASCULAR: Regular rate and rhythm without murmurs, gallops, or rubs. RESPIRATORY: Breath sounds equal bilaterally. No accessory muscle use. GASTROINTESTINAL: Abdomen soft, non-tender, nondistended. Medications and IVs Current Medications Sodium Chloride 1,000 ml @ 1,000 mls/hr Q1H IV Last administered on 03/02/17 15:50; Start 03/02/17 at 13:31; Stop 03/02/17 at 14:30; Status DC Sodium Chloride 1,000 ml @ 1,000 mls/hr Q1H IV Last administered on 03/02/17 18:00; Start 03/02/17 at 13:31; Stop 03/02/17 at 14:30; Status DC Sodium Chloride 1,000 ml @ 999 mls/hr BOLUS ONCE IV ; Start 03/02/17 at 14:15; Stop 03/02/17 at 15:15; Status DC Sodium Chloride (NS 1000 ml Inj) 1,000 ml @ 999 mls/hr BOLUS ONCE IV ; Start 03/02/17 at 14:15; Stop 03/02/17 at 15:15; Status DC Sodium Chloride 2 ml 2 ml UNSCH PRN IV FLUSH FLUSH AFTER USING IV ACCESS; Start 03/02/17 at 14:30; Stop 03/02/17 at 15:31; Status DC Sodium Bicarbonate 150 meq/Sodium Chloride 1,150 ml @ 125 mls/hr Q9H12M IV ; Start 03/02/17 at 14:45; Stop 03/02/17 at 15:30; Status DC Sodium Chloride (NS 1000 ml Inj) 1,000 ml @ 125 mls/hr Q8H IV ; Start 03/02/17 at 16:00; Stop 03/02/17 at 16:36; Status DC Sodium Chloride (NS Flush) 2 ml UNSCH PRN IV FLUSH FLUSH AFTER USING IV ACCESS ; Start 03/02/17 at 15:30 Sodium Chloride (NS Flush) 2 ml BID IV FLUSH Last administered on 03/03/17 08: 41; Start 03/02/17 at 21:00 Ondansetron HCl (Zofran Inj) 4 mg Q6H PRN IVP NAUSEA OR VOMITING; Start at 15:30 Naloxone HCl (Narcan Inj) 0.4 mg UNSCH PRN IV SEE LABEL COMMENTS; Start at 15:30 Senna/Docusate Sodium (Yenifer-Colace) 1 tab BID PO Last administered on 03/03/17 08:39; Start 03/02/17 at 21:00 Magnesium Hydroxide (Milk Of Magnesia Liq) 30 ml Q12H PRN PO MILD - MODERATE CONSTIPATION; Start 03/02/17 at 15:30 Sennosides (Senokot) 17.2 mg Q12H PRN PO MODERATE - SEVERE CONSTIPATION; Start 03/02/17 at 15:30 Bisacodyl (Dulcolax Supp) 10 mg DAILY PRN RECTAL SEVERE CONSITIPATION; Start at 15:30 Lactulose 30 ml 30 ml DAILY PRN PO SEVERE CONSITIPATION; Start 03/02/17 at 15:30 Sodium Bicarbonate 154 meq/Sodium Chloride 1,000 ml @ 0 mls/hr Q0M IV ; Start 03/02/17 at 15:27 Sodium Bicarbonate/ Sodium Chloride (Sodium Bicarbonate 8.4% Inj/1/2 NS 1000 ml Inj) 1,100 ml @ 125 mls/hr Q8H48M IV Last administered on 03/03/17t 10:31; Start 03/02/17 at 16:00 Flumazenil (Romazicon Inj) 0.2 mg Q1M PRN IV PUSH SEE LABEL COMMENTS; Start 03/02/17 at 16:00 Lorazepam (Ativan) 1 mg Q4H PRN PO CIWA 8 - 10; Start 03/02/17 at 16:00 Lorazepam (Ativan Inj) 1 mg Q4H PRN IV PUSH CIWA 8 - 10; Start 03/02/17 at 16:00 Lorazepam (Ativan) 2 mg Q2H PRN PO CIWA 11-14; Start 03/02/17 at 16:00 Lorazepam (Ativan Inj) 2 mg Q2H PRN IV PUSH CIWA 11-14; Start 03/02/17 at 16:00 Lorazepam (Ativan Inj) 2 mg Q1H PRN IV PUSH CIWA 15-20; Start 03/02/17 at 16:00 Lorazepam (Ativan Inj) 2 mg Q15M PRN IV PUSH CIWA > 20; Start 03/02/17 at 16:00 Thiamine HCl (Vitamin B1) 100 mg ONCE ONCE PO ; Start 03/02/17 at 16:00; Stop at 16:02; Status DC Thiamine HCl (Vitamin B1) 100 mg DAILY PO Last administered on 03/03/17 08:40; Start 03/03/17 at 09:00 Folic Acid (Folate) 1 mg ONCE ONCE PO ; Start 03/02/17 at 16:00; Stop 03/02/17 at 16:02; Status DC Folic Acid (Folate) 1 mg DAILY PO Last administered on 03/03/17 08:40; Start at 09:00 Albuterol/ Ipratropium (Duoneb Neb) 1 ampule Q6HR WHILE AWAKE NEB NEB Last administered on 03/03/17 08:29; Start 03/02/17 at 20:00 Albuterol Sulfate (Albuterol Neb) 2.5 mg Q2HR NEB PRN NEB COUGH, WHEEZING, CONGESTION; Start 03/02/17 at 16:30 Nicotine (Habitrol 14 Mg Patch.24 Hr) 1 patch DAILY T-DERMAL Last administered on 03/03/17 08:40; Start 03/02/17 at 16:30 Miscellaneous Information 1 1 DAILY T-DERMAL ; Start 03/03/17 at 09:00 Heparin Sodium/ Dextrose (Heparin-D5W Inj) 250 ml @ 0 mls/hr TITRATE IV Last administered on 03/03/17 10:51; Start 03/02/17 at 18:15 A/P Assessment and Plan 41-year-old female with past medical history significant for breast cancer status post double mastectomy with left axillary quin involvement lost to follow-up one year ago, asthma and IV drug use who presents to [facility] ED with complaints of severe muscle cramping and numbness and tingling in her hands and lower legs after she "overdosed" on heroin yesterday morning around 5am. Rhabdomyolysis following IV Heroin use/[place] [address] and now a 6000. It is improving. Aggressive fluid hydration Continue to trend. Acute renal failure secondary to above Nephrology consulted by ED physician. Per their conversation, begin 125 cc/h of 1/2 NS with bicarb. Fluids were not started last night but renal failure is improving. Her nurse started the fluids this morning. Avoid nephrotoxic agents strict I&Os Nuclear Medicine Technician is following. Continue to trend creatinine. Polysubstance abuse Alcoholism Heroin IV drug use Obtain [facility] protocol Thiamine and folic acid daily Monitor for signs of withdrawal Discuss cessation/counseling Asthma Patient denied any shortness of breathing. Lungs are clear. Chest x-ray suggests possible atelectasis. No treatment indicated. Transaminitis Likely secondary to alcohol use improved. Ethyl alcohol level negative. Liver ultrasound showed No acute findings. Mild splenomegaly to 13 cm Hepatitis profile negative. Bilateral lower leg pain Bilateral Doppler showed calf DVT present in the left posterior tibial vein. Patient is on heparin drip. Most likely with improvement with her creatinine she be transitioned to an oral anticoagulant. DVT in the left posterior tibial vein. See treatment as above. Most likely provoke since patient was unconscious for a long period time. Patient told she would need to follow with her oncologist to make sure that her breast cancer is in remission because this may affect the duration of treatment for anticoagulation. She was told that if this was due to her prolonged immobilization the treatment is usually for 3 months. Patient told she needs to follow with her primary care physician in regards to length of treatment. Ongoing tobaccoism Discussed smoking cessation/counseling Nicotine patch with H/O Breast cancer with left axillary node involvement to receive XRT but patient lost to follow-up one year ago Patient will need a follow-up with oncologist as outpatient DVT prophylaxis Patients on heparin drip Ashia Garcia MD Mar 03, 2017 11:25
[2017-03-03 13:28] LABS: APTT (PATIENT) 44.8 SEC (24.3-30.1)
[2017-03-03 14:04] LABS: AMPHETAMINE, URINE NEG (NEG); BARBITURATES, URINE NEG (NEG); COCAINE, URINE POS (NEG)
[2017-03-03 14:12] LABS: CKMB 29.3 NG/ML (0.5-3.6)
--- NOTE | 2017-03-03 15:50 | HHI.NPPN ---
Subjective History of Present Illness 41-year-old female with past medical history of breast cancer with bilateral mastectomy and chemotherapy, bronchial asthma, history of IV drug abuse, came to the hospital with complaint of muscle pain. I was called to see the patient because of very high BUN and creatinine and very high CPK level. The patient admits that she has been using heroin and she is saying that she is using it orally and she overdosed yesterday morning and she was probably lying on the floor for some time. She does not know exactly for how long. Additional Remarks Patient is alert, no SOB, started eating better, pain in legs and arms improving. Review of Systems General Constitutional: Fatigue Cardiovascular Cardiac: BRADLEY Objective Data Data 03/02/17 03/03/17 19:00 07:00 Intake Total 480 ml Output Total 950 ml Balance -470 ml Intake Oral 480 ml Output Urine Total 950 ml # Voids 2 5 Vital Signs Date Time Temp Pulse Resp B/P Pulse Ox O2 Delivery O2 Flow Rate FiO2 03/03/17 12:28 98.9 97 16 108/57 92 03/03/17 08:39 97.7 98 16 112/67 94 03/03/17 05:50 90 03/03/17 05:00 99.1 95 17 114/66 93 03/03/17 00:30 99.6 98 17 103/55 94 03/02/17 22:00 104 03/02/17 20:30 99.2 93 17 107/57 94 03/02/17 17:00 97 Room Air -: 03/03/17 0400 03/03/17 0400 Physical Exam General Appearance: No Acute Distress, Comfortable Eyes Eye Exam: Pupils Equal Ears & Nose Ears & Nose Exam: Tympanic Membranes Normal Neck Neck Exam: Neck Supple Pulmonary Resp Exam: Clear Bilaterally, Breath Sounds Equal, No Distress Cardiology CV Exam: Regular, Normal Sinus Rhythm Gastrointestinal/Abdomen GI Exam: Soft, Non-Tender, Bowel Sounds Present Extremeties Extremities Exam: No Edema Neurologic Neuro Exam: Alert, Awake, Oriented Psychiatric Psych Exam: Appropriate Responses Assessment/Plan Assessment Summary: NALINI/Acute Renal Failure Problem List: (1) Renal insufficiency (2) Rhabdomyolysis Plan Patient has improvement in the Creatinine. CPK improving also. Urine out put is good. BP is stable. Continue IVF for now. Told to stop using drugs. Problem Qualifiers (1) Rhabdomyolysis: Qualified Code: M62.82 - Non-traumatic rhabdomyolysis Kayden Sharma MD Mar 03, 2017 15:50
[2017-03-03 18:24] LABS: BACTERIA, URINE RARE /hpf; BLOOD, URINE MOD (NEG); COMMENT (UR) CULT NOT INDICATED; CULTURE IF INDICATED CULT NOT INDICATED; GLUCOSE,URINE NEG (NEG); KETONE, URINE NEG (NEG); NITRITE,URINE NEG (NEG); PH, URINE 6.5 (5.0-8.5); SQUAMOUS EPITHELIAL CELL URINE 1 /hpf (0-5); URINE COLOR LIGHT-YELLOW (YELLW/STRAW)
[2017-03-03] MEDS ORDERED: NAPROXEN 375 MG TAB PO ONE (22:45)
[2017-03-04] VITALS (7 sets, daily range): BP systolic 115–122; BP diastolic 58–70; PULSE 73–89; RESP 16–19; TEMP 97.1–98.4; O2SAT 93–98
[2017-03-04] MEDS: HEPARIN-D5W INJ 250 ML IV SCH (02:44)
[2017-03-04] MEDS: SODIUM BICARBONATE 8.4% INJ 100 MEQ in SODIUM CHLOR 0.45% 1000 ML INJ 1,000 ML IV SCH ×2 (02:52→12:30)
[2017-03-04 08:00] LABS: HEMATOCRIT 31.2 % (35.0-46.0); MEAN CELL VOLUME 86.9 FL (80.0-100.0); MEAN CORPUSCULAR HEMOGLOBIN 29.4 PG (27.0-34.0); MEAN CORPUSCULAR HGB CONC 33.8 % (32.0-36.0); PLATELET COUNT 120 TH/MM3 (150-450); RED BLOOD COUNT 3.59 MIL/MM3 (4.00-5.30); REVIEW FLAG FINAL; WHITE BLOOD COUNT 5.6 TH/MM3 (4.0-11.0)
[2017-03-04 08:08] LABS: APTT (PATIENT) 50.9 SEC (24.3-30.1)
[2017-03-04] MEDS: RESP: ALBUTEROL 2.5 MG/IPRATROPIUM 0.5 MG NEB (SCH) NEB ×2 (08:16→13:58)
[2017-03-04] MEDS: SODIUM CHLORIDE 0.9% FLUSH 10 ML FLUSH IV FLUSH SCH (08:30)
[2017-03-04] MEDS: FOLIC ACID 1 MG TAB PO SCH (08:30)
[2017-03-04] MEDS: REMOVE OLD PATCH T-DERMAL SCH (08:30)
[2017-03-04] MEDS: DOCUSATE SODIUM 50 MG/SENNA 8.6 MG TAB PO SCH (08:30)
[2017-03-04] MEDS: THIAMINE HCL 100 MG TAB PO SCH (08:30)
[2017-03-04] MEDS: NICOTINE 14 MG/24 HR PATCH T-DERMAL SCH (08:30)
[2017-03-04 08:33] LABS: ALT (GPT) 297 U/L (10-53); ANION GAP 3 MEQ/L (5-15); AST (GOT) 118 U/L (15-37); BICARBONATE 34.9 MEQ/L (21.0-32.0); BLOOD UREA NITROGEN 8 MG/DL (7-18); CHLORIDE 103 MEQ/L (98-107); GLOMERULAR FILTRATION RATE 69 ML/MIN (>89); SODIUM (NA) 141 MEQ/L (136-145)
[2017-03-04 08:35] LABS: POTASSIUM 2.9 MEQ/L (3.5-5.1)
[2017-03-04 08:51] LABS: ALKALINE PHOSPHATASE 77 U/L (45-117); CREATINE KINASE 2162 U/L (26-192); TOTAL BILIRUBIN ADULT 0.4 MG/DL (0.2-1.0)
[2017-03-04] MEDS ORDERED: POTASSIUM CHLORIDE 10 MEQ CONTROLLED RELEASE TAB PO ONE (09:00)
[2017-03-04 09:17] LABS: CKMB 5.8 NG/ML (0.5-3.6)
--- NOTE | 2017-03-04 14:58 | HHI.PR ---
Subjective Remarks Follow-up for DVT, rhabdo, acute renal failure Patient is making good urine output. She has no complaints. She is very anxious to go home. Deny any type of pain. Denied chest pain, palpitation, or shortness of breathing. Objective Vitals Vital Signs Date Time Temp Pulse Resp B/P Pulse Ox O2 Delivery O2 Flow Rate FiO2 03/04/17 12:21 98.3 85 16 115/58 98 03/04/17 10:06 73 03/04/17 08:36 98.0 77 16 117/63 93 03/04/17 08:19 93 21 03/04/17 05:00 98.1 80 19 120/70 94 03/04/17 00:15 97.1 83 18 119/61 93 03/03/17 20:33 90 21 03/03/17 20:30 94 03/03/17 20:00 99.3 97 20 120/66 97 03/03/17 16:17 99.2 98 20 114/56 96 I/O 03/03/17 03/03/17 03/03/17 03/04/17 03/04/17 03/04/17 06:59 14:59 22:59 06:59 14:59 22:59 Intake Total 480 ml 1423 ml 2956 ml 480 ml Output Total 950 ml 900 ml Balance -470 ml 523 ml 2956 ml 480 ml Intake Oral 480 ml 720 ml 900 ml 480 ml IV Total 703 ml 2056 ml Output Urine Total 950 ml 900 ml # Voids 5 3 # Bowel Movements 0 Result Diagram: 03/04/17 0750 03/04/17 0750 Objective Remarks GENERAL: in NAD SKIN: Port dry clean and intact HEAD: Normocephalic. EYES: No scleral icterus. No injection or drainage. NECK: Supple, trachea midline. No JVD or lymphadenopathy. CARDIOVASCULAR: Regular rate and rhythm without murmurs, gallops, or rubs. RESPIRATORY: Breath sounds equal bilaterally. No accessory muscle use. GASTROINTESTINAL: Abdomen soft, non-tender, nondistended. Medications and IVs Current Medications Sodium Chloride 1,000 ml @ 1,000 mls/hr Q1H IV Last administered on 03/02/17t 15:50; Start 03/02/17 at 13:31; Stop 03/02/17 at 14:30; Status DC Sodium Chloride 1,000 ml @ 1,000 mls/hr Q1H IV Last administered on 03/02/17 18:00; Start 03/02/17 at 13:31; Stop 03/02/17 at 14:30; Status DC Sodium Chloride 1,000 ml @ 999 mls/hr BOLUS ONCE IV ; Start 03/02/17 at 14:15; Stop 03/02/17 at 15:15; Status DC Sodium Chloride (NS 1000 ml Inj) 1,000 ml @ 999 mls/hr BOLUS ONCE IV ; Start 03/02/17 at 14:15; Stop 03/02/17 at 15:15; Status DC Sodium Chloride 2 ml 2 ml UNSCH PRN IV FLUSH FLUSH AFTER USING IV ACCESS; Start 03/02/17 at 14:30; Stop 03/02/17 at 15:31; Status DC Sodium Bicarbonate 150 meq/Sodium Chloride 1,150 ml @ 125 mls/hr Q9H12M IV ; Start 03/02/17 at 14:45; Stop 03/02/17 at 15:30; Status DC Sodium Chloride (NS 1000 ml Inj) 1,000 ml @ 125 mls/hr Q8H IV ; Start 03/02/17 at 16:00; Stop 03/02/17 at 16:36; Status DC Sodium Chloride (NS Flush) 2 ml UNSCH PRN IV FLUSH FLUSH AFTER USING IV ACCESS ; Start 03/02/17 at 15:30 Sodium Chloride (NS Flush) 2 ml BID IV FLUSH Last administered on 03/03/17 08: 41; Start 03/02/17 at 21:00 Ondansetron HCl (Zofran Inj) 4 mg Q6H PRN IVP NAUSEA OR VOMITING; Start at 15:30 Naloxone HCl (Narcan Inj) 0.4 mg UNSCH PRN IV SEE LABEL COMMENTS; Start at 15:30 Senna/Docusate Sodium (Yenifer-Colace) 1 tab BID PO Last administered on 08:30; Start 03/02/17 at 21:00 Magnesium Hydroxide (Milk Of Magnesia Liq) 30 ml Q12H PRN PO MILD - MODERATE CONSTIPATION; Start 03/02/17 at 15:30 Sennosides (Senokot) 17.2 mg Q12H PRN PO MODERATE - SEVERE CONSTIPATION; Start 03/02/17 at 15:30 Bisacodyl (Dulcolax Supp) 10 mg DAILY PRN RECTAL SEVERE CONSITIPATION; Start at 15:30 Lactulose 30 ml 30 ml DAILY PRN PO SEVERE CONSITIPATION; Start 03/02/17 at 15:30 Sodium Bicarbonate 154 meq/Sodium Chloride 1,000 ml @ 0 mls/hr Q0M IV ; Start 03/02/17 at 15:27 Sodium Bicarbonate/ Sodium Chloride (Sodium Bicarbonate 8.4% Inj/1/2 NS 1000 ml Inj) 1,100 ml @ 125 mls/hr Q8H48M IV Last administered on 03/04/17 12:30; Start 03/02/17 at 16:00 Flumazenil (Romazicon Inj) 0.2 mg Q1M PRN IV PUSH SEE LABEL COMMENTS; Start 03/02/17 at 16:00 Lorazepam (Ativan) 1 mg Q4H PRN PO CIWA 8 - 10; Start 03/02/17 at 16:00 Lorazepam (Ativan Inj) 1 mg Q4H PRN IV PUSH CIWA 8 - 10; Start 03/02/17 at 16:00 Lorazepam (Ativan) 2 mg Q2H PRN PO CIWA 11-14; Start 03/02/17 at 16:00 Lorazepam (Ativan Inj) 2 mg Q2H PRN IV PUSH CIWA 11-14; Start 03/02/17 at 16:00 Lorazepam (Ativan Inj) 2 mg Q1H PRN IV PUSH CIWA 15-20; Start 03/02/17 at 16:00 Lorazepam (Ativan Inj) 2 mg Q15M PRN IV PUSH CIWA > 20; Start 03/02/17 at 16:00 Thiamine HCl (Vitamin B1) 100 mg ONCE ONCE PO ; Start 03/02/17 at 16:00; Stop at 16:02; Status DC Thiamine HCl (Vitamin B1) 100 mg DAILY PO Last administered on 03/04/17 08:30 ; Start 03/03/17 at 09:00 Folic Acid (Folate) 1 mg ONCE ONCE PO ; Start 03/02/17 at 16:00; Stop 03/02/17 at 16:02; Status DC Folic Acid (Folate) 1 mg DAILY PO Last administered on 03/04/17 08:30; Start 03/03/17 at 09:00 Albuterol/ Ipratropium (Duoneb Neb) 1 ampule Q6HR WHILE AWAKE NEB NEB Last administered on 03/04/17 08:16; Start 03/02/17 at 20:00 Albuterol Sulfate (Albuterol Neb) 2.5 mg Q2HR NEB PRN NEB COUGH, WHEEZING, CONGESTION; Start 03/02/17 at 16:30 Nicotine (Habitrol 14 Mg Patch.24 Hr) 1 patch DAILY T-DERMAL Last administered on 03/04/17 08:30; Start 03/02/17 at 16:30 Miscellaneous Information 1 1 DAILY T-DERMAL ; Start 03/03/17 at 09:00 Heparin Sodium/ Dextrose (Heparin-D5W Inj) 250 ml @ 0 mls/hr TITRATE IV Last administered on 03/04/17 02:44; Start 03/02/17 at 18:15; Stop 03/04/17 at 15:15 ; Status DC Naproxen (Naprosyn) 375 mg ONCE ONCE PO Last administered on 03/03/17 23:08; Start 03/03/17 at 22:45; Stop 03/03/17 at 22:46; Status DC Potassium Chloride (KCl) 60 meq ONCE ONCE PO Last administered on 03/04/17 09 :11; Start 03/04/17 at 09:00; Stop 03/04/17 at 09:01; Status DC Rivaroxaban (Xarelto) 15 mg BID PO ; Start 03/04/17 at 15:00; Status UNV A/P Assessment and Plan 41-year-old female with past medical history significant for breast cancer status post double mastectomy with left axillary quin involvement lost to follow-up one year ago, asthma and IV drug use who presents to [facility] ED with complaints of severe muscle cramping and numbness and tingling in her hands and lower legs after she "overdosed" on heroin yesterday morning around 5am. Rhabdomyolysis following IV Heroin use/overdose Drastic improvement in CK continues to trend down. Patient on IV fluids but is tolerating oral intake with resolution of her acute renal failure. Encourage oral fluid intake. Acute renal failure secondary to above. Resolved. Patient is good urine output. On IV fluids. 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 Continue to trend creatinine. Polysubstance abuse Alcoholism Heroin IV drug use Positive for cocaine. Large illicit drug use. [facility] protocol Thiamine and folic acid daily Monitor for signs of withdrawal Discuss cessation/counseling Asthma Patient denied any shortness of breathing. Lungs are clear. Chest x-ray suggests possible atelectasis. No treatment indicated. Transaminitis Likely secondary to alcohol use improved. Ethyl alcohol level negative. Liver ultrasound showed No acute findings. Mild splenomegaly to 13 cm Hepatitis profile negative. Bilateral lower leg pain Bilateral Doppler showed calf DVT present in the left posterior tibial vein. Renal function is now normal. Will discontinue heparin drip and start patient on Xarelto. Dealt with case management in regards to obtaining medication and blue card. DVT in the left posterior tibial vein. See treatment as above. Most likely provoke since patient was unconscious for a long period time. Patient told she would need to follow with her oncologist to make sure that her breast cancer is in remission because this may affect the duration of treatment for anticoagulation. She was told that if this was due to her prolonged immobilization the treatment is usually for 3 months. Patient told she needs to follow with her primary care physician in regards to length of treatment. Ongoing tobaccoism Discussed smoking cessation/counseling Nicotine patch with H/O Breast cancer with left axillary node involvement to receive XRT but patient lost to follow-up one year ago Patient will need a follow-up with oncologist as outpatient Hypokalemia Patient was given 60 mEq of potassium chloride. Will recheck potassium. DVT prophylaxis Patients on heparin drip Discharge Planning If potassium is above 3.4 and okay with plastic and reconstructive surgeon patient can be discharged to home. dealth with patient's nurse in regards to the management. Ashia Garcia MD Mar 04, 2017 14:58
[2017-03-04] MEDS ORDERED: POTA10TA2 PO (15:14)
[2017-03-04] MEDS ORDERED: XARE15TA PO (15:14)
[2017-03-04] MEDS ORDERED: XARE20TA PO (15:14)
--- NOTE | 2017-03-04 15:20 | HHI.DCPOC ---
Discharge Care Plan Diagnosis: (1) Rhabdomyolysis (2) Renal insufficiency (3) DVT (deep venous thrombosis) Goals to Promote Your Health * To prevent worsening of your condition and complications * To maintain your health at the optimal level Directions to Meet Your Goals Take your medications as prescribed Follow your dietary instruction Follow activity as directed Keep your appointments as scheduled Take your immunizations and boosters as scheduled If your symptoms worsen call your PCP, if no PCP go to Urgent Care Center or Emergency Room Smoking is Dangerous to Your Health. Avoid second hand smoke Call the 24-hour hour crisis hotline for domestic abuse at Ashia Garcia MD Mar 04, 2017 15:20
[2017-03-04] MEDS ORDERED: RIVAROXABAN 15 MG TAB PO SCH (16:00)
--- NOTE | 2017-03-04 17:26 | HHI.NPPN ---
Subjective History of Present Illness 41-year-old female with past medical history of breast cancer with bilateral mastectomy and chemotherapy, bronchial asthma, history of IV drug abuse, came to the hospital with complaint of muscle pain. I was called to see the patient because of very high BUN and creatinine and very high CPK level. The patient admits that she has been using heroin and she is saying that she is using it orally and she overdosed yesterday morning and she was probably lying on the floor for some time. She does not know exactly for how long. Additional Remarks Patient is alert, no SOB, started eating better,pain is better. Review of Systems General Constitutional: Fatigue Cardiovascular Cardiac: BRADLEY Objective Data Data 03/03/17 03/04/17 19:00 07:00 Intake Total 1423 ml 2956 ml Output Total 900 ml Balance 523 ml 2956 ml Intake Oral 720 ml 900 ml IV Total 703 ml 2056 ml Output Urine Total 900 ml # Voids 3 # Bowel Movements 0 Vital Signs Date Time Temp Pulse Resp B/P Pulse Ox O2 Delivery O2 Flow Rate FiO2 03/04/17 16:00 98.4 89 18 122/63 96 03/04/17 12:21 98.3 85 16 115/58 98 03/04/17 10:06 73 03/04/17 08:36 98.0 77 16 117/63 93 03/04/17 08:19 93 21 03/04/17 05:00 98.1 80 19 120/70 94 03/04/17 00:15 97.1 83 18 119/61 93 03/03/17 20:33 90 21 03/03/17 20:30 94 03/03/17 20:00 99.3 97 20 120/66 97 -: 03/04/17 0750 03/04/17 1600 Microbiology 03/03/17 Stool Occult Blood (AICHA) - Final, Complete HEMOCCULT NEGATIVE Physical Exam General Appearance: No Acute Distress, Comfortable Eyes Eye Exam: Pupils Equal Ears & Nose Ears & Nose Exam: Tympanic Membranes Normal Neck Neck Exam: Neck Supple Pulmonary Resp Exam: Clear Bilaterally, Breath Sounds Equal, No Distress Cardiology CV Exam: Regular, Normal Sinus Rhythm Gastrointestinal/Abdomen GI Exam: Soft, Non-Tender, Bowel Sounds Present Extremeties Extremities Exam: No Edema Neurologic Neuro Exam: Alert, Awake, Oriented Psychiatric Psych Exam: Appropriate Responses Assessment/Plan Assessment Summary: NALINI/Acute Renal Failure Problem List: (1) Renal insufficiency (2) Rhabdomyolysis Plan Urine out put is good. BP is stable. Creatinine now normalize. K was low, replaced and repeat is better. Possible D/C home. Problem Qualifiers (1) Rhabdomyolysis: Qualified Code: M62.82 - Non-traumatic rhabdomyolysis Kayden Sharma MD Mar 04, 2017 17:25
== END 2017-03-04 20:48 | disposition home or self-care (01) | DRG 558 ==
LOC: NEPE 10:46 → NEDA 15:21 → N05A 19:14 → N05B 03-03 10:50 → N05A 03-03 10:54
PROVIDERS: ADMIT Family Medicine; ATTEND Family Medicine
DX: M62.82 Rhabdomyolysis (principal); N17.9 Acute kidney failure, unspecified; I82.442 Acute embolism and thrombosis of left tibial vein; F17.210 Nicotine dependence, cigarettes, uncomplicated; F11.10 Opioid abuse, uncomplicated; J45.909 Unspecified asthma, uncomplicated; Z85.3 Personal history of malignant neoplasm of breast; F10.20 Alcohol dependence, uncomplicated
CPT/HCPCS: 71020; 76705; 76937; 80053; 80074; 80307; 81001; 82272; 82310; 82550; 82552; 83735; 84132; 84703; 85025; 85027; 85610; 85730; 93005; 93970; 94640; 94664; J1642; J1644; J7030

== ENCOUNTER 2017-03-26 19:29 | Emergency (ER) | payer SELFPAY ==
[~2017-03-26 19:29] MED LIST changes: -HYDR-3580 PO; -LEVA750T9 PO; +POTA10TA2 PO; +XARE15TA PO; +XARE20TA PO
[2017-03-26 19:32] VITALS: BP 131/93; PULSE 95; RESP 16; TEMP 98.6; O2SAT 97
== END 2017-03-26 19:40 | disposition left against medical advice (07) ==
LOC: NED 19:29
DX: R11.0 Nausea (principal)
CPT/HCPCS: 99281

== ENCOUNTER 2017-05-26 09:53 | Emergency (ER) | payer SELFPAY ==
[~2017-05-26] VITALS: Ht 165.1 cm; Wt 88.5 kg
[2017-05-26 09:54] VITALS: BP 119/84; PULSE 96; RESP 20; TEMP 98.7; O2SAT 96
[2017-05-26 10:41] VITALS: BP 98/63; PULSE 84; RESP 21; O2SAT 95
[2017-05-26 12:00] VITALS: BP 102/60; PULSE 62; PULSE 82; RESP 19; O2SAT 98
[2017-05-26 12:01] LABS: AUTOMATED NEUTROPHIL # 4.2 TH/MM3 (1.8-7.7); BASOPHIL # 0.1 TH/MM3 (0-0.2); BASOPHIL % 0.7 % (0.0-2.0); EOSINOPHIL # 0.3 TH/MM3 (0-0.4); EOSINOPHIL % 4.5 % (0.0-4.0); HEMATOCRIT 38.9 % (35.0-46.0); HEMO FLAGS DIFF FINAL; LYMPH % 35.7 % (9.0-44.0); LYMPHOCYTE # 2.8 TH/MM3 (1.0-4.8); MEAN CELL VOLUME 88.1 FL (80.0-100.0); MEAN CORPUSCULAR HEMOGLOBIN 29.8 PG (27.0-34.0); MEAN CORPUSCULAR HGB CONC 33.8 % (32.0-36.0); MONO % 4.6 % (0.0-8.0); NEUT % 54.5 % (16.0-70.0); PLATELET COUNT 194 TH/MM3 (150-450); RED BLOOD COUNT 4.42 MIL/MM3 (4.00-5.30); RED CELL DISTRIBUTION WIDTH 14.2 % (11.6-17.2); WHITE BLOOD COUNT 7.7 TH/MM3 (4.0-11.0)
[2017-05-26 12:14] LABS: ALT (GPT) 37 U/L (10-53); ANION GAP 7 MEQ/L (5-15); AST (GOT) 14 U/L (15-37); BICARBONATE 23.8 MEQ/L (21.0-32.0); BLOOD UREA NITROGEN 13 MG/DL (7-18); CHLORIDE 108 MEQ/L (98-107); GLOMERULAR FILTRATION RATE 86 ML/MIN (>89); SODIUM (NA) 139 MEQ/L (136-145)
[2017-05-26 12:15] LABS: ALKALINE PHOSPHATASE 92 U/L (45-117); TOTAL BILIRUBIN ADULT 0.1 MG/DL (0.2-1.0)
--- NOTE | 2017-05-26 12:33 | PD ---
HPI Chief Complaint: Chest Pain Time Seen by Provider: 10:46 Travel History International Travel<30 days: No Contact w/Intl Traveler<30days: No Traveled to known affect area: No History of Present Illness HPI So 41 year-old woman presents to the emergency department complaining of pain in the chest and back specialist on the left side, worse with deep breathing going on for the past couple days. She also describes shortness of breath and dyspnea on exertion. She is worried because she has a history of DVT in the right leg and has not been taking any medications for it. She denies any leg swelling. She is a history of breast cancer at age 17, as well as recent overdose complicated by rhabdomyolysis and kidney injury during which time the DVT developed. No fevers or chills. No cough cold symptoms. No other complaints. History Past Medical History Narrative Medical History of breast cancer at age 17 History of overdose with rhabdomyolysis in history of present illness History of DVT in the right lower extremity Tetanus Vaccination: > 5 Years Influenza Vaccination: No LMP: 05/25/17 : 7 Para: 7 Social History Alcohol Use: No Tobacco Use: Yes (1 PPD FOR 15 YEARS now 10 per day) Allergies-Medications (Allergen,Severity, Reaction): Coded Allergies: morphine (Unverified Allergy, Severe, Headache, 05/26/17) azithromycin (Unverified Allergy, Intermediate, RASH,N/V, 05/26/17) erythromycin base (Unverified Allergy, Intermediate, RASH,N/V, 05/26/17) Reported Meds & Prescriptions Reported Meds & Active Scripts Active Potassium Chloride ER (Potassium Chloride) 10 Meq Tab 10 Meq PO BID Xarelto (Rivaroxaban) 15 Mg Tab 15 Mg PO Q12HR take 15 mg tab twice a day for 21 days then switched to 20 mg once a day Review of Systems Except as stated in HPI: all other systems reviewed are Neg Physical Exam Narrative GENERAL: Well-appearing 41 year-old woman, no acute distress. SKIN: Focused skin assessment warm/dry. HEAD: Atraumatic. Normocephalic. EYES: Pupils equal and round. No scleral icterus. No injection or drainage. ENT: No nasal bleeding or discharge. Mucous membranes pink and moist. NECK: Trachea midline. No JVD. CARDIOVASCULAR: Regular rate and rhythm. No murmur appreciated. RESPIRATORY: No accessory muscle use. Clear to auscultation. Breath sounds equal bilaterally. GASTROINTESTINAL: Abdomen soft, non-tender, nondistended. Hepatic and splenic margins not palpable. MUSCULOSKELETAL: No obvious deformities. No clubbing. No cyanosis. No edema. NEUROLOGICAL: Awake and alert. No obvious cranial nerve deficits. Motor grossly within normal limits. Normal speech. PSYCHIATRIC: Appropriate mood and affect; insight and judgment normal. Data Data Last Documented VS Vital Signs Date Time Temp Pulse Resp B/P (MAP) Pulse Ox O2 Delivery O2 Flow Rate FiO2 05/26/17 10:41 84 21 98/63 (75) 95 Room Air 05/26/17 09:54 98.7 Orders Orders Complete Blood Count With Diff (05/26/17 10:58) Comprehensive Metabolic Panel (05/26/17 10:58) Ct Pulmonary Angiogram (05/26/17 ) Iv Access Insert/Monitor (05/26/17 10:58) Electrocardiogram (05/26/17 ) Iohexol 350 Inj (Omnipaque 350 Inj) (05/26/17 13:09) Heparin Central Flush (Heparin Central F (05/26/17 13:09) Labs Laboratory Tests Test 05/26/17 11:00 White Blood Count 7.7 TH/MM3 Red Blood Count 4.42 MIL/MM3 Hemoglobin 13.2 GM/DL Hematocrit 38.9 % Mean Corpuscular Volume 88.1 FL Mean Corpuscular Hemoglobin 29.8 PG Mean Corpuscular Hemoglobin Concent 33.8 % Red Cell Distribution Width 14.2 % Platelet Count 194 TH/MM3 Mean Platelet Volume 9.6 FL Neutrophils (%) (Auto) 54.5 % Lymphocytes (%) (Auto) 35.7 % Monocytes (%) (Auto) 4.6 % Eosinophils (%) (Auto) 4.5 % Basophils (%) (Auto) 0.7 % Neutrophils # (Auto) 4.2 TH/MM3 Lymphocytes # (Auto) 2.8 TH/MM3 Monocytes # (Auto) 0.4 TH/MM3 Eosinophils # (Auto) 0.3 TH/MM3 Basophils # (Auto) 0.1 TH/MM3 CBC Comment DIFF FINAL Differential Comment Blood Urea Nitrogen 13 MG/DL Creatinine 0.75 MG/DL Random Glucose 118 MG/DL Total Protein 6.7 GM/DL Albumin 3.3 GM/DL Calcium Level 8.6 MG/DL Alkaline Phosphatase 92 U/L Aspartate Amino Transf (AST/SGOT) 14 U/L Alanine Aminotransferase (ALT/SGPT) 37 U/L Total Bilirubin 0.1 MG/DL Sodium Level 139 MEQ/L Potassium Level 4.0 MEQ/L Chloride Level 108 MEQ/L Carbon Dioxide Level 23.8 MEQ/L Anion Gap 7 MEQ/L Estimat Glomerular Filtration Rate 86 ML/MIN MDM Medical Decision Making Medical Screen Exam Complete: Yes Emergency Medical Condition: Yes Interpretation(s) My review of EKG: Normal sinus rhythm at a rate of 85, normal axis, normal intervals, no acute ischemia. LABS: CBC is unremarkable CMP is overall unremarkable. CT pulmonary exam: No PE. Some nonspecific enlarged lymph nodes. Differential Diagnosis PE, pleurisy, ACS, pneumothorax, pneumonia, other Narrative Course Medical decision making INITIAL: 41 year-old woman presents to the emergency department complaining of pleuritic left-sided chest pain with known right lower extremity DVT. I don't think she has a PE but I think we have to work it up. We'll check labs, IV fluids, CT pulmonary injury Yousuf, reassess. CT negative will treat for pleurisy. Diagnosis Primary Impression: Chest pain Additional Instructions: Take Naprosyn as needed for chest pain. follow up with her primary doctor in the next 2-4 days. Return to the emergency department for any new or worsening symptoms. Med/Other Pt SpecificInfo: Prescription(s) given Scripts Naproxen (Naproxen) 500 Mg Tab 500 MG PO BID Y for PAIN SCALE 1 TO 10, #10 TAB 0 Refills Prov: Jonn Betancourt MD 05/26/17 Disposition: 01 DISCHARGE HOME Condition: Stable Jonn Betancourt MD May 26, 2017 12:33
[2017-05-26] MEDS ORDERED: IOHEXOL 350 MG/ML 10 ML VIAL (for RAD DIAG) IVCONTRAST ONE (13:09)
--- NOTE | 2017-05-26 13:16 | RADRPT ---
EXAM DATE/TIME: 05/26/2017 12:40 [facility] COMPARISON: No previous studies available for comparison. INDICATIONS : Sharp chest pain radiating to back for two days. History of DVT. IV CONTRAST: 75 cc Omnipaque 350 (iohexol) IV RADIATION DOSE: 12.79 CTDIvol (mGy) MEDICAL HISTORY : Deep venous thrombosis. Carcinoma, breast. SURGICAL HISTORY : Appendectomy. section.Mastectomy, bilateral. ENCOUNTER: Initial ACUITY: 2 days PAIN SCALE: 5/10 LOCATION: chest TECHNIQUE: Volumetric scanning of the chest was performed using a pulmonary embolism protocol MIP images were re constructed. Using automated exposure control and adjustment of the mA and/or kV according to patien t size, radiation dose was kept as low as reasonably achievable to obtain optimal diagnostic quality images. DICOM format image data is available electronically for review and comparison. Follow-up recommendations for detected pulmonary nodules are based at a minimum on nodule size and pa tient risk factors according to Fleischner Society Guidelines. FINDINGS: PULMONARY ARTERIES: No filling defects are seen in the pulmonary arteries through the segmental level. LUNGS: There is no consolidation or pneumothorax . No concerning pulmonary nodule is visualized. Posterior bibasilar atelectatic changes are noted. Minimal scattered emphysematous changes are noted. PLEURAE: There is no pleural thickening or pleural effusion. MEDIASTINUM: There is a mildly enlarged pretracheal mediastinal lymph node measuring 1.4 x 0.8 cm as well as a mil dly enlarged left suprahilar lymph node measuring 1.7 x 0.9 cm. No other significant mediastinal or h ilar lymphadenopathy is noted. No axillary lymphadenopathy is noted. MUSCULOSKELETAL: Within normal limits for patient age. MISCELLANEOUS: The visualized upper abdominal organs demonstrate no acute abnormality. Right intraoperative Infuse-a -Port has its tip in the right atrium. CONCLUSION: 1. No evidence of pulmonary embolism. 2. Minimal posterior bibasilar atelectasis. 3. Minimal scattered emphysematous changes. 4. Nonspecific mildly enlarged pretracheal mediastinal and left suprahilar lymph nodes. Larry Sinha MD on May 26, 2017 at 13:08 Board Certified Radiologist. This report was verified electronically.
[2017-05-26] MEDS ORDERED: NAPR500T2 PO (13:28)
[2017-05-26 14:00] VITALS: BP 99/68; PULSE 80; RESP 17; O2SAT 98
--- NOTE | 2017-05-27 13:25 | EKG ---
Date Performed: 05/26/2017 Time Performed: 10:26:27 PTAGE: 41 years EKG: Sinus rhythm NORMAL ECG Compared to prior tracing no significant change PREVIOUS TRACING : 03/02/2017 11.25 DOCTOR: Jesus Goodwin Interpretating Date/Time 05/27/2017 13:23:33
== END 2017-05-26 14:17 | disposition home or self-care (01) ==
LOC: NEPC 09:53
DX: R07.9 Chest pain, unspecified (principal); R06.02 Shortness of breath; Z86.718 Personal history of other venous thrombosis and embolism; M62.82 Rhabdomyolysis; Z85.3 Personal history of malignant neoplasm of breast
CPT/HCPCS: 71275; 80053; 85025; 93005; 99285; J1642; Q9967

== ENCOUNTER 2017-09-11 08:12 | Emergency (ER) | payer SELFPAY ==
[~2017-09-11] VITALS: Ht 167.6 cm; Wt 100.0 kg
[~2017-09-11 08:12] MED LIST changes: +NAPR500T2 PO; -SUMA25 PO; -XARE20TA PO
[2017-09-11 08:13] VITALS: BP 136/78; PULSE 92; RESP 16; TEMP 98.3; O2SAT 98
[2017-09-11] MEDS ORDERED: SODIUM CHLOR 0.9% 1000 ML INJ 1,000 ML IV SCH (08:35)
--- NOTE | 2017-09-11 08:42 | PD ---
HPI Chief Complaint: GI Complaint Time Seen by Provider: 08:28 Travel History International Travel<30 days: No Contact w/Intl Traveler<30days: No Traveled to known affect area: No History of Present Illness HPI The patient is a 42-year-old female who presents to the emergency department for cough and cold symptoms of 2 days' duration. The patient complains of chills, subjective fever, dry nonproductive cough, nausea, diarrhea , and intermittent abdominal cramping. The patient states she was exposed to influenza last week. The patient does have a history of breast cancer, is not currently undergoing chemotherapy. She denies any shortness of breath, chest pain, or dysuria. Symptoms are moderate. Patient describes the diarrhea as loose, watery, brown to clear without any visible blood. The nausea is intermittent with decreased oral intake. Symptoms are moderate. PFSH Past Medical History Hx Anticoagulant Therapy: No Arthritis: No Asthma: Yes Autoimmune Disease: No Blood Disorders: No Anxiety: Yes Depression: Yes Heart Rhythm Problems: No Cancer: Yes (bilateral BREAST CANCER) Cardiovascular Problems: No High Cholesterol: No Chemotherapy: Yes (november 2014) Chest Pain: No Congestive Heart Failure: No COPD: No Cerebrovascular Accident: No Diabetes: No Diminished Hearing: No Deep Vein Thrombosis: Yes (right leg) Endocrine: No GERD: No Glaucoma: No Genitourinary: No Headaches: No Hepatitis: No Hiatal Hernia: No Hypertension: No Immune Disorder: No Implanted Vascular Access Dvce: Yes (power port) Kidney Stones: No Musculoskeletal: Yes (FORM OF LUPUS) Neurologic: No Psychiatric: No Reproductive: No Respiratory: No Myocardial Infarction: No Radiation Therapy: No Renal Failure: No Seizures: No Sickle Cell Disease: No Sleep Apnea: No Thyroid Disease: No Ulcer: No : 7 Para: 7 Miscarriage: 0 : 0 Ectopic : No Ovarian Cysts: No Tubal Ligation: No Past Surgical History Abdominal Surgery: Yes (APPENDIX REMOVED, HERNIA ) AICD: No Appendectomy: Yes Cardiac Surgery: No Section: Yes (x 2) Ear Surgery: No Endocrine Surgery: No Eye Surgery: No Genitourinary Surgery: No Gynecologic Surgery: Yes (DOUBLE MASTECTOMY, 2 C-S, ) Hysterectomy: No Neurologic Surgery: No Oral Surgery: No Pacemaker: No Thoracic Surgery: Yes (double mastectomy) Other Surgery: Yes (HERNIA/ power port right chest wall) Social History Alcohol Use: No Tobacco Use: Yes (1 PPD FOR 15 YEARS now 10 per day) 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 (hx of CRACK COCAINE) Allergies-Medications (Allergen,Severity, Reaction): Coded Allergies: morphine (Unverified Allergy, Severe, Headache, 09/11/17) azithromycin (Unverified Allergy, Intermediate, RASH,N/V, 09/11/17) erythromycin base (Unverified Allergy, Intermediate, RASH,N/V, 09/11/17) Reported Meds & Prescriptions Reported Meds & Active Scripts Active No Active Prescriptions or Reported Medications Review of Systems Except as stated in HPI: all other systems reviewed are Neg General / Constitutional: Positive: Fever, Chills HENT: No: Headaches Cardiovascular: No: Chest Pain or Discomfort Respiratory: Positive: Cough, No: Shortness of Breath Gastrointestinal: Positive: Nausea, Diarrhea, Abdominal Pain (intermittent cramping), No: Vomiting Genitourinary: No: Dysuria Musculoskeletal: Positive: Myalgias Skin: No Rash Physical Exam Narrative GENERAL: Awake, alert, pleasant 42-year-old female who appears her stated age and is in no acute respiratory distress. SKIN: Focused skin assessment warm/dry. HEAD: Atraumatic. Normocephalic. EYES: No injection or drainage. ENT: No nasal bleeding or discharge. Dry mucous membranes. NECK: Trachea midline. No JVD. CARDIOVASCULAR: Regular rate and rhythm. No murmur appreciated. RESPIRATORY: No accessory muscle use. Clear to auscultation. Breath sounds equal bilaterally. GASTROINTESTINAL: Abdomen soft, non-tender, nondistended. No rebound tenderness , guarding, rigidity. Back: No CVA tenderness. MUSCULOSKELETAL: No obvious deformities. No clubbing. No cyanosis. No edema. NEUROLOGICAL: Awake and alert. No obvious cranial nerve deficits. Motor grossly within normal limits. Normal speech. PSYCHIATRIC: Appropriate mood and affect; insight and judgment normal. Data Data Last Documented VS Vital Signs Date Time Temp Pulse Resp B/P (MAP) Pulse Ox O2 Delivery O2 Flow Rate FiO2 09/11/17 08:55 16 09/11/17 08:45 99 Room Air 09/11/17 08:13 98.3 92 Orders Orders Complete Blood Count With Diff (09/11/17 08:35) Comprehensive Metabolic Panel (09/11/17 08:35) Lipase (09/11/17 08:35) Lactic Acid (09/11/17 08:35) Urinalysis - C+S If Indicated (09/11/17 08:35) Iv Access Insert/Monitor (09/11/17 08:35) Ecg Monitoring (09/11/17 08:35) Oximetry (09/11/17 08:35) Ondansetron Inj (Zofran Inj) (09/11/17 08:45) Sodium Chlor 0.9% 1000 Ml Inj (Ns 1000 M (09/11/17 08:35) Sodium Chloride 0.9% Flush (Ns Flush) (09/11/17 08:45) Famotidine Inj (Pepcid Inj) (09/11/17 08:45) Influenzae A/B Antigen (09/11/17 08:35) Labs Laboratory Tests Test 09/11/17 08:45 09/11/17 08:50 09/11/17 10:25 White Blood Count 6.8 TH/MM3 Red Blood Count 4.50 MIL/MM3 Hemoglobin 13.4 GM/DL Hematocrit 39.4 % Mean Corpuscular Volume 87.5 FL Mean Corpuscular Hemoglobin 29.8 PG Mean Corpuscular Hemoglobin Concent 34.0 % Red Cell Distribution Width 14.2 % Platelet Count 164 TH/MM3 Mean Platelet Volume 9.6 FL Neutrophils (%) (Auto) 53.5 % Lymphocytes (%) (Auto) 34.7 % Monocytes (%) (Auto) 6.3 % Eosinophils (%) (Auto) 4.4 % Basophils (%) (Auto) 1.1 % Neutrophils # (Auto) 3.7 TH/MM3 Lymphocytes # (Auto) 2.4 TH/MM3 Monocytes # (Auto) 0.4 TH/MM3 Eosinophils # (Auto) 0.3 TH/MM3 Basophils # (Auto) 0.1 TH/MM3 CBC Comment DIFF FINAL Differential Comment Blood Urea Nitrogen 9 MG/DL Creatinine 0.83 MG/DL Random Glucose 118 MG/DL Total Protein 6.4 GM/DL Albumin 3.1 GM/DL Calcium Level 8.3 MG/DL Alkaline Phosphatase 101 U/L Aspartate Amino Transf (AST/SGOT) 17 U/L Alanine Aminotransferase (ALT/SGPT) 43 U/L Total Bilirubin 0.3 MG/DL Sodium Level 141 MEQ/L Potassium Level 3.7 MEQ/L Chloride Level 110 MEQ/L Carbon Dioxide Level 23.8 MEQ/L Anion Gap 7 MEQ/L Estimat Glomerular Filtration Rate 76 ML/MIN Lipase 125 U/L Lactic Acid Level 1.3 mmol/L Urine Color LIGHT-YELLOW Urine Turbidity HAZY Urine pH 6.0 Urine Specific [place] 1.007 Urine Protein NEG mg/dL Urine Glucose (UA) NEG mg/dL Urine Ketones NEG mg/dL Urine Occult Blood NEG Urine Nitrite NEG Urine Bilirubin NEG Urine Urobilinogen LESS THAN 2.0 MG/DL Urine Leukocyte Esterase NEG Urine RBC LESS THAN 1 /hpf Urine WBC 1 /hpf Urine Squamous Epithelial Cells 4 /hpf Urine Mucus FEW /lpf Microscopic Urinalysis Comment CULT NOT INDICATED MDM Medical Decision Making Medical Screen Exam Complete: Yes Emergency Medical Condition: Yes Medical Record Reviewed: Yes Interpretation(s) Laboratory Tests Test 09/11/17 08:45 09/11/17 08:50 09/11/17 10:25 White Blood Count 6.8 TH/MM3 Red Blood Count 4.50 MIL/MM3 Hemoglobin 13.4 GM/DL Hematocrit 39.4 % Mean Corpuscular Volume 87.5 FL Mean Corpuscular Hemoglobin 29.8 PG Mean Corpuscular Hemoglobin Concent 34.0 % Red Cell Distribution Width 14.2 % Platelet Count 164 TH/MM3 Mean Platelet Volume 9.6 FL Neutrophils (%) (Auto) 53.5 % Lymphocytes (%) (Auto) 34.7 % Monocytes (%) (Auto) 6.3 % Eosinophils (%) (Auto) 4.4 % Basophils (%) (Auto) 1.1 % Neutrophils # (Auto) 3.7 TH/MM3 Lymphocytes # (Auto) 2.4 TH/MM3 Monocytes # (Auto) 0.4 TH/MM3 Eosinophils # (Auto) 0.3 TH/MM3 Basophils # (Auto) 0.1 TH/MM3 CBC Comment DIFF FINAL Differential Comment Blood Urea Nitrogen 9 MG/DL Creatinine 0.83 MG/DL Random Glucose 118 MG/DL Total Protein 6.4 GM/DL Albumin 3.1 GM/DL Calcium Level 8.3 MG/DL Alkaline Phosphatase 101 U/L Aspartate Amino Transf (AST/SGOT) 17 U/L Alanine Aminotransferase (ALT/SGPT) 43 U/L Total Bilirubin 0.3 MG/DL Sodium Level 141 MEQ/L Potassium Level 3.7 MEQ/L Chloride Level 110 MEQ/L Carbon Dioxide Level 23.8 MEQ/L Anion Gap 7 MEQ/L Estimat Glomerular Filtration Rate 76 ML/MIN Lipase 125 U/L Lactic Acid Level 1.3 mmol/L Urine Color LIGHT-YELLOW Urine Turbidity HAZY Urine pH 6.0 Urine Specific [place] 1.007 Urine Protein NEG mg/dL Urine Glucose (UA) NEG mg/dL Urine Ketones NEG mg/dL Urine Occult Blood NEG Urine Nitrite NEG Urine Bilirubin NEG Urine Urobilinogen LESS THAN 2.0 MG/DL Urine Leukocyte Esterase NEG Urine RBC LESS THAN 1 /hpf Urine WBC 1 /hpf Urine Squamous Epithelial Cells 4 /hpf Urine Mucus FEW /lpf Microscopic Urinalysis Comment CULT NOT INDICATED Date/Time Source Procedure Growth Status 09/11/17 08:50 Nasal Aspirate Influenza Types A,B Antigen (AICHA) - Final NEGATIVE FOR FLU A AND B ANTIGEN.... Complete Differential Diagnosis Differential diagnosis includes influenza, viral syndrome, dehydration, pneumonia, pyelonephritis, electrolyte abnormality. Narrative Course The patient's port was accessed, labs are drawn and sent, the patient was placed on cardiac telemetry monitoring and continuous pulse oximetry monitoring. The patient received IV fluids and Zofran. UA was sent to lab. Influenza screen was sent to lab. White count is unremarkable. Lactic acid is normal. LFTs are within normal limits. UA is negative. Influenza screen is negative. The patient was reevaluated 11:37 AM. The patient's symptoms have improved. The patient we discharged home on Zofran. She is advised to have a clear liquid diet and advance as tolerated, follow-up with her primary physician , and return if symptoms worsen or progress. Diagnosis Primary Impression: Gastroenteritis Additional Impression: Viral syndrome Patient Instructions: General Instructions Additional Instructions: Clear liquid diet and advance as tolerated. Plenty of fluids to stay hydrated. Zofran as needed. Please provide a patient a copy of her labs at discharge. Return if symptoms worsen or progress. Med/Other Pt SpecificInfo: Prescription(s) given Scripts Ondansetron Odt (Zofran Odt) 4 Mg Tab 4 MG SL Q6HR Y for Nausea/Vomiting, #10 TAB 0 Refills Prov: Artemio Escobedo MD 09/11/17 Disposition: 01 DISCHARGE HOME Condition: Stable Artemio Escobedo MD Sep 11, 2017 08:42
[2017-09-11 08:45] VITALS: RESP 16; O2SAT 99
[2017-09-11] MEDS ORDERED: FAMOTIDINE 20 MG/2 ML VIAL IV PUSH ONE (08:45)
[2017-09-11] MEDS ORDERED: SODIUM CHLORIDE 0.9% FLUSH 10 ML FLUSH IV FLUSH PRN (08:45)
[2017-09-11] MEDS ORDERED: ONDANSETRON HCL 4 MG/2 ML VIAL IVP ONE (08:45)
[2017-09-11 09:04] LABS: AUTOMATED NEUTROPHIL # 3.7 TH/MM3 (1.8-7.7); BASOPHIL # 0.1 TH/MM3 (0-0.2); BASOPHIL % 1.1 % (0.0-2.0); EOSINOPHIL # 0.3 TH/MM3 (0-0.4); EOSINOPHIL % 4.4 % (0.0-4.0); HEMATOCRIT 39.4 % (35.0-46.0); HEMOGLOBIN 13.4 GM/DL (11.6-15.3); LYMPH % 34.7 % (9.0-44.0); LYMPHOCYTE # 2.4 TH/MM3 (1.0-4.8); MEAN CELL VOLUME 87.5 FL (80.0-100.0); MEAN CORPUSCULAR HEMOGLOBIN 29.8 PG (27.0-34.0); MEAN PLATELET VOLUME 9.6 FL (7.0-11.0); MONO % 6.3 % (0.0-8.0); MONOCYTE # 0.4 TH/MM3 (0-0.9); NEUT % 53.5 % (16.0-70.0); PLATELET COUNT 164 TH/MM3 (150-450); RED CELL DISTRIBUTION WIDTH 14.2 % (11.6-17.2); WHITE BLOOD COUNT 6.8 TH/MM3 (4.0-11.0)
[2017-09-11 09:26] LABS: ALBUMIN 3.1 GM/DL (3.4-5.0); AST (GOT) 17 U/L (15-37); BICARBONATE 23.8 MEQ/L (21.0-32.0); BLOOD UREA NITROGEN 9 MG/DL (7-18); CALCIUM 8.3 MG/DL (8.5-10.1); CHLORIDE 110 MEQ/L (98-107); CREATININE 0.83 MG/DL (0.50-1.00); GLOMERULAR FILTRATION RATE 76 ML/MIN (>89); GLUCOSE,RANDOM 118 MG/DL (74-106); SODIUM (NA) 141 MEQ/L (136-145)
[2017-09-11 09:27] LABS: ALT (GPT) 43 U/L (10-53)
[2017-09-11 09:29] LABS: ALKALINE PHOSPHATASE 101 U/L (45-117); TOTAL BILIRUBIN ADULT 0.3 MG/DL (0.2-1.0); TOTAL PROTEIN 6.4 GM/DL (6.4-8.2)
[2017-09-11 11:11] LABS: BILIRUBIN, URINE NEG (NEG); BLOOD, URINE NEG (NEG); GLUCOSE,URINE NEG (NEG); KETONE, URINE NEG (NEG); MUCUS URINE FEW /lpf (OCC); NITRITE,URINE NEG (NEG); SQUAMOUS EPITHELIAL CELL URINE 4 /hpf (0-5); URINE COLOR LIGHT-YELLOW (YELLW/STRAW); URINE LEUKOCYTE ESTERASE NEG (NEG)
[2017-09-11] MEDS ORDERED: ZOFR4TAB3 SL (11:41)
== END 2017-09-11 12:03 | disposition home or self-care (01) ==
LOC: NEPE 08:12
DX: K52.9 Noninfective gastroenteritis and colitis, unspecified (principal); B34.9 Viral infection, unspecified; J45.909 Unspecified asthma, uncomplicated; F17.200 Nicotine dependence, unspecified, uncomplicated; F41.9 Anxiety disorder, unspecified; F32.9 Major depressive disorder, single episode, unspecified; Z86.718 Personal history of other venous thrombosis and embolism; Z85.3 Personal history of malignant neoplasm of breast
CPT/HCPCS: 80053; 81001; 83605; 83690; 85025; 87804; 96361; 96374; 96375; 99284; J1642; J2405; J7030